=== PATIENT | male | born 1940 | race Caucasian/White ===

== ENCOUNTER 2018-12-30 14:34 | Outpatient (REF) | payer MEDICARE, SELFPAY ==
[2018-12-30 19:52] LABS: COMMENT (LAB VIEW ONLY) 37.74 mg/dL; Microalb ug/mg Crea 7.9 ug/mg Cr
== END 2018-12-30 14:54 ==
LOC: NCHCN 14:34
PROVIDERS: PCP Internal Medicine; Visit Provider Internal Medicine
DX: R73.09 Other abnormal glucose (principal)
CPT/HCPCS: 82043; 82570

== ENCOUNTER 2019-02-13 11:58 | Outpatient (REF) | payer MEDICARE, SELFPAY ==
[2019-02-13 20:04] LABS: Abs Immature Grans 0.01 k/cumm (0.0-0.09); Absolute Basophil Count 0.05 k/cumm (0.0-0.2); Absolute Eosinophil Count 0.45 k/cumm (0.0-0.7); Absolute Lymphocyte Count 1.86 k/cumm (1.2-3.4); Absolute Monocyte Count 0.77 k/cumm (0.11-0.7); Absolute Neutrophil Count 7.05 k/cumm (1.2-6.7); Basophils % 0.5; Eosinophils % 4.4; HCT 36.5 % (40.0-50.0); Immature Grans % 0.1; Lymphocytes % 18.3; Mean Corp. HGB Concentration 32.9 g/dL (32.0-36.0); Mean Corpuscular Hemoglobin 32.6 pg (27.0-33.0); Mean Corpuscular Volume 99.2 fL (80-95); Mean Platelet Volume 11.8 fL (8.0-11.0); Monocytes % 7.6; Neutrophils % 69.1; Platelet Count 181 x1000/uL (130-400); RBC 3.68 m/cumm (4.50-6.00); RBC Distribution Width 16.8 % (11.8-14.1); White Blood Cell Count 10.19 k/cumm (4.4-10.8)
[2019-02-13 20:30] LABS: Anion Gap 6.9 mmol/L (3-11); BUN 27 mg/dL (7-18); CO2 30.1 mmol/L (21.0-32.0); CREATININE 1.26 mg/dL (0.70-1.30); Calcium 8.6 mg/dL (8.5-10.1); Chloride 104 mmol/L (98-107); Estimated GFR 55.49 (mL/min/1.73m2); Glucose 101 mg/dL (70-100); NT-proBNP 2159 pg/mL; Potassium 4.5 mmol/L (3.5-5.1); Sodium 141 mmol/L (136-145); Troponin I 0.03 ng/mL (0.00-0.06)
== END 2019-02-13 12:18 ==
LOC: NCHCN 11:58
PROVIDERS: PCP Internal Medicine; Visit Provider Internal Medicine
DX: I10 Essential (primary) hypertension (principal); I50.9 Heart failure, unspecified; J44.9 Chronic obstructive pulmonary disease, unspecified
CPT/HCPCS: 80048; 83880; 84484; 85025

== ENCOUNTER 2019-08-09 14:14 | Outpatient (REF) | payer MEDICARE, SELFPAY ==
[2019-08-09 20:21] LABS: Anion Gap 7.7 mmol/L (3-11); BUN 26 mg/dL (7-18); CO2 33.3 mmol/L (21.0-32.0); CREATININE 1.53 mg/dL (0.70-1.30); Calcium 8.6 mg/dL (8.5-10.1); Chloride 103 mmol/L (98-107); Estimated GFR 44.24 (mL/min/1.73m2); Glucose 97 mg/dL (70-100); Sodium 144 mmol/L (136-145)
== END 2019-08-09 14:34 ==
LOC: NCHCN 14:14
PROVIDERS: PCP Internal Medicine; Visit Provider Internal Medicine
DX: I10 Essential (primary) hypertension (principal); I48.91 Unspecified atrial fibrillation; J44.9 Chronic obstructive pulmonary disease, unspecified; R59.0 Localized enlarged lymph nodes
CPT/HCPCS: 80048

== ENCOUNTER 2020-10-10 13:48 | Outpatient (REF) | payer MEDICARE, SELFPAY ==
[2020-10-10 15:09] LABS: HCT 33.4 % (40.0-50.0); HGB 10.1 g/dL (13.5-17.5); MCH 31.6 pg (27.0-33.0); MCHC 30.2 % (32.0-36.0); MCV 104.4 fL (80-95); MPV 10.5 fL (8.0-11.0); Platelet Count 343 10^3/uL (130-400); RDW 17.1 % (11.8-14.1); RDW-SD 65.1 fL; WBC 11.86 10^3/uL (4.4-10.8)
[2020-10-10 15:15] LABS: Anion Gap 3.5 mmol/L (3-11); BUN 27 mg/dL (7-18); CO2 36.5 mmol/L (21.0-32.0); CREATININE 1.64 mg/dL (0.70-1.30); Calcium 8.5 mg/dL (8.5-10.1); Chloride 102 mmol/L (98-107); Estimated GFR 40.73 (mL/min/1.73m2); Glucose 139 mg/dL (74-106); Potassium 3.6 mmol/L (3.5-5.1); Sodium 142 mmol/L (136-145)
== END 2020-10-10 14:08 ==
LOC: NCHCN 13:48
PROVIDERS: PCP Internal Medicine; Visit Provider Internal Medicine
DX: I10 Essential (primary) hypertension (principal); I13.10 Hypertensive heart and chronic kidney disease without heart failure, with stage 1 through stage 4 chronic kidney disease, or unspecified chronic kidney disease; I42.9 Cardiomyopathy, unspecified
CPT/HCPCS: 80048; 85027

== ENCOUNTER 2020-12-06 17:57 | Outpatient (REF) | payer MEDICARE, SELFPAY ==
[2020-12-06 18:55] LABS: COMMENT (LAB VIEW ONLY) 31.51 mg/dL; Microalb ug/mg Crea 4.4 ug/mg Cr
== END 2020-12-06 17:58 | disposition home or self-care (01) ==
LOC: NCHCN 17:57
PROVIDERS: PCP Internal Medicine; Visit Provider Internal Medicine
DX: E11.9 Type 2 diabetes mellitus without complications (principal); K92.2 Gastrointestinal hemorrhage, unspecified; I13.10 Hypertensive heart and chronic kidney disease without heart failure, with stage 1 through stage 4 chronic kidney disease, or unspecified chronic kidney disease; I42.9 Cardiomyopathy, unspecified
CPT/HCPCS: 82043; 82570

== ENCOUNTER 2021-08-25 19:47 | Outpatient (REF) | payer MEDICARE, SELFPAY ==
[2021-08-25 20:46] LABS: ALT 33 U/L (16-63); AST 40 U/L (15-37); Albumin 3.4 g/dL (3.4-5.0); Alkaline Phosphatase 87 U/L (46-116); Anion Gap 2.9 mmol/L (3-11); BUN 26 mg/dL (7-18); Bilirubin, Total 0.7 mg/dL (0.2-1.0); CO2 37.1 mmol/L (21.0-32.0); CREATININE 1.5 mg/dL (0.70-1.30); Calcium 8.9 mg/dL (8.5-10.1); Chloride 100 mmol/L (98-107); Estimated GFR 45.03 (mL/min/1.73m2); Glucose 113 mg/dL (74-106); Potassium 5.2 mmol/L (3.5-5.1); Sodium 140 mmol/L (136-145); Total Protein 7.5 g/dL (6.4-8.2)
[2021-08-25 20:56] LABS: HCT 45.2 % (40.0-50.0); HGB 14.8 g/dL (13.5-17.5); MCH 33.3 pg (27.0-33.0); MCHC 32.7 % (32.0-36.0); MCV 101.6 fL (80-95); MPV 13.6 fL (8.0-11.0); Platelet Count 149 10^3/uL (130-400); RBC 4.45 10^6/uL (4.36-5.78); RDW 14.5 % (11.8-14.1); WBC 7.89 10^3/uL (4.4-10.8)
== END 2021-08-25 19:48 | disposition home or self-care (01) ==
LOC: NCHCN 19:47
PROVIDERS: PCP Internal Medicine; Visit Provider Internal Medicine
DX: I10 Essential (primary) hypertension (principal); I48.91 Unspecified atrial fibrillation; I42.9 Cardiomyopathy, unspecified
CPT/HCPCS: 80053; 85027

== ENCOUNTER 2022-06-19 19:48 | Outpatient (REF) | payer MEDICARE, SELFPAY ==
--- OUTSIDE RECORDS SUMMARY | 2022-06-19 19:51 | XMS_ITS | Continuity of Care Document ---
:1940 Author Organization [facility] Care Team Providers Name Role Phone [facility] Unavailable Unavailable Problems Combined list of problems from Department of Defense and Veterans Affairs facilities. It does not include entries that were removed or entered in error. Problem Status Onset Problem Type Date of Comments Source Date Resolution Cardiac disorder Active Condition WHI TE [place] T [facility] Chronic atrial Active Condition WH[place] fibrillation (SNOMED [place] 230946148) [facility] Chronic obstructive Active Condition WHITE lung disease (SN[place]ED [place] 97685657) [facility] Diabetes mellitus Active Condition WH ITE (SNOMED CT 82282410) RIVER T [facility] Dizziness * Active Condition WHITE (ICD-9-CM 780.4) [place] [facility] Elevated Liver Active Condition WHITE Function Tests RIVER T (ICD-9-CM 794.8) VA IVETTE Health Maintenance Active Condition W ALYSSA (ICD-9-CM V65.9) [place] T [facility] HTN - Hypertension Active Condition W ALYSSA (SNOMED CT 28838279) R[facility] T [facility] Hyperlipidemia Active Condition WHITE (SNOMED CT 51021722) R[facility] T [facility] Neuropathy (nerve Active Condition May 12, [place] [facility] damage) 2018 CLINIC Entered By: Juvencio MENDOZA Comment: right lower leg from knee to ankle 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, WH ITE disease 2016 RIVER T Entered By: [facility] Juvencoi MENDOZA Comment: RIGHT LEG ONLY RESULT OF TKA Restless legs Active Condition [place] [place] [facility] 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 [place] [facility] Diagnosis: ICD-10-CM active Diagnosis [facility] Z23 Encounter for CL INIC immunizationwith Provider Comments: Encounter for Immunization Diagnosis: ICD-10-CM active Diagnosis [facility] J44.9 Chronic CLINIC obstructive pulmonary disease, unspecifiedwith Provider Comments: Chronic obstructive lung disease ([facility] [id number]) Diagnosis: ICD-10-CM active Diagnosis WHITE Z71.[address] specified [facility] counselingwith Provider Comments: Other specified counseling Diagnosis: ICD-10-CM active Diagnosis [facility] I48.20 Chronic CLINI C atrial fibrillation, unspecifiedwith Provider Comments: Chronic atrial fibrillation, unspecified Medications Combined list of outpatient medications from Department of Defense and Veterans Affairs facilities. Medications provided include 1) outpatient medications from the last 15 months, and 2) patient-reported medications. Medication Details Route Status Patient Prescription Prescription Last Ordering Order Source Instructions Expires Number Dispense Provider Date Date ALBUTEROL INHALE ACTIVE BAEZARADAMES 05/24/ ST. (NEB) IN AEL D 2013 [place] SOLN,INHL NEBULIZE RY [facility] R BY MOUTH ALBUTEROL INHALE 2 04/02/2022 [id number] HIPES, CAMILA 04/01/ [place] 90MCG/ACTUA PUFFS BY 1 N D 2020 R[place] T (CFC-F) MOUTH [place] INHL,ORAL,8 FOUR [facility] .5GM DOSE TIMES COUNTER DAILY NEEDED FOR BREATHIN G ASPIRIN CHEW ONE ORAL ACTIVE ROBERT ST. 81MG TABLET ,SAMARA 2008 [place] TAB,CHEWABL BY MOUTH RY CB OC E EVERY DAY ATORVASTATI TAKE ONE ORAL ACTIVE TATUM SORENSON 04/05/ [place] N [place] 40MG TABLET FABRICE2016 [facility] TAB BY MOUTH CLINIC EVERY DAY AZITHROMYCI TAKE ONE ORAL ACTIVE TATUM SORENSON 10/02/ WHITE N 250MG TAB TABLET FABRICE 2015 [place] BY MOUTH [place] EVERY [facility] DAY DILTIAZEM TAKE 1 ORAL ACTIVE REJI 06/02/ WHI TE (EQV-TIAZAC CAPSULE ,LADARIUS 2016 COLTEN ER AB4) 180MG BY MOUTH R [place]CT 24HR CAP EVERY [facility] DAY FUROSEMIDE TAKE ONE ORAL ACTIVE RADAMES BAEZA ST. 20MG TAB TABLET AEL D 2013 [place] BY MOUTH RY CBOC NEEDED METOPROLOL TAKE ONE ORAL ACTIVE TATUM SORENSON 04/05/ YOLIS TARTRATE TABLET FABRICE2016 [facility] 50MG TAB BY MOUTH CLINIC TWICE A DAY NITROGLYCER TAKE ONE SUBLIN ACTIVE RADAMES BAEZA 05/24 ST. IN 0.4MG TABLET GUAL AEL D 2013 [place] TAB,SUBLING UNDER RY CBOC UAL THE TONGUE EVERY 5 MINUTES OLODATEROL INHALE 2 05/10/2021 [id number] HIPE S,CAMILA 05/09/ YOLIS 2.5MCG/TIOT PUFFS BY 1 N D 2019 [place] ROPIUM MOUTH CLINIC 2.5MCG/ACTU EVERY AT DAY FOR INHL,ORAL,6 BREATHIN 0D,4GM G OXYCODONE TAKE ORAL ACTIVE REJI 05/12/ NEWP ORT TAB 10MG BY ,LADARIUS 2017 [facility] MOUTH R CLINIC THREE TIMES A DAY WARFARIN NA TAKE ONE ORAL ACTIVE REJI 10/23/ YOLIS 5MG TAB TABLET ,LADARIUS 2017 [place] BY MOUTH R CLINIC ONCE DAILY Allergies, Adverse Reactions, Alerts Combined list of allergies from Department of Defense and Veterans Affairs facilities. It does not include entries that were removed or entered in error. Substance Category Reaction Severity Reaction Status Date Comments S ource type Reported SPIRONOLACTON Propensity Eruption Propensity active WHITE E to adverse to adverse 9 [place] DEMETRICE reactions reactions [place] to drug to drug [facility] (finding) (finding) Immunizations Combined list of available immunizations from the Department of Defense and Veterans Affairs facilities. Immunization Series Date Administered Site Reaction Lot CVX Drug St atus Comments Source Given By Number Code Fire Behavior Analyst ZOSTER 2 complet NEWP ORT RECOMBINANT 2021 ed [facility] ZOSTER 1 complet NEWP ORT RECOMBINANT 2021 ed [facility] COVID-19 2 complet WH ITE (MODERNA), 2020 ed COLTEN ER MRNA, LNP-S, J CT PF, 100 [facility] MCG/0.5 ML DOSE COVID-19 1 complet WH ITE (MODERNA), 2020 ed COLTEN ER MRNA, LNP-S, J CT PF, 100 [facility] MCG/0.5 ML DOSE INFLUENZA, complet WHITE UNSPECIFIED 2019 ed [place] DEMETRICE FORMULATION [facility] complet Dr. NEVAREZ , 2018 ed [place] DEMETRICE INJECTABLE office NASIMA T (outside [facility]) INFLUENZA, complet As per ROQUE , 2017 ed State of [place]ER INJECTABLE [place] Immunizat [facility] ion Registry INFLUENZA, complet ROQUE , 2016 ed RIVE R INJECTABLE [place] [facility], complet [place] UNSPECIFIED 2016 ed [place] DEMET[place]ICE FORMULATION NASIMA T [facility] PNEUMOCOCCAL complet WHITE CONJUGATE PCV 2016 ed [place] 13 [place] [facility] INFLUENZA, complet WHITE UNSPECIFIED 2014 ed [place] DEMETRICE FORMULATION NASIMA T [facility] PNEUMOCOCCAL complet WHITE POLYSACCHARID 2014 ed [place] PPV23 [place] [facility] INFLUENZA, complet [place] WHITE UNSPECIFIED 2013 ed [place] FORMULATION Health [facility] TDAP complet As per MILEY Dykes 2012 ed State of [facility] Immun. [place] Registry [facility] C INFLUENZA, complet WHITE UNSPECIFIED 2012 ed [place] DEMETRICE FORMULATION NASIMA T [facility] ZOSTER LIVE complet as rich r ROQUE 2012 ed State of [facility] [place] Immunizat [facility] OC ion Registry ZOSTER LIVE complet Site: [place] 2012 ed Left [place] [facility] INFLUENZA, complet WHITE UNSPECIFIED 2011 ed [place] DEMETRICE FORMULATION NASIMA T [facility] INFLUENZA, complet Site: ST. UNSPECIFIED 2010 ed Right MISSY [facility] FORMULATION Deltoid RY CB[facility] TDAP complet ST. 2010 ed [place] [facility] INFLUENZA, complet Site: ST. UNSPECIFIED 2009 ed Left MISSY [place] FORMULATION Deltoid RY CBOC INFLUENZA, complet WHITE UNSPECIFIED 2008 ed [place] DEMETRICE FORMULATION NASIMA T [facility] PNEUMOCOCCAL, complet ST. UNSPECIFIED 2008 ed MISSY [place] FORMULATION RY CB[facility] TD(ADULT) complet S T. UNSPECIFIED 2008 ed MISSY [place] FORMULATION RY CB[facility] INFLUENZA, complet WHITE UNSPECIFIED 2008 ed [place] DEMETRICE FORMULATION NASIMA T [facility] INFLUENZA, complet WHITE UNSPECIFIED 2007 ed [place] DEMETRICE FORMULATION NASIMA T [facility] Results Combined list of recent chemistry, hematology and other laboratory results from Department of Defense and Veterans Affairs, ranging from 15 months to all on record, depending upon the facility. Order Name Results Value Reference Date Interpretation Specimen Com ments Source Range FERRITIN FERRITIN 155.0 20 - 300 11/05 Specimen Type : SERUM [place] [ Comment: Te sts performed on [employer] (405) SN:[id number] VA E] IN SERUM Ordering Pr ovider: EDYTA GONSALVES [facility]INIC OR PLASMA Report Releas ed Date/Time: Nov 05, 2021 07:31 AM BY Reporting Lab: [place] [facility] IMMUNOASSAY [address] [facility] [address] Performing Lab: [place] [facility] [address] [facility] [place] [address] IRON+TIBC( IRON 122 40 - 160 11/05 Specimen Typ e: PLASMA YOLIS P) [MASS/VOLUM /2021 Comment: Te sts performed on youwho (405) SN:[id number] VA E] IN SERUM Ordering Pr ovider: EDYTA GONSALVES [facility] OR PLASMA Report Releas ed Date/Time: Nov 05, 2021 07:31 AM Reporting Lab: [place] [facility] [address] [facility] [address] Performing Lab: [place] [facility] [address] [facility] [address] IRON+TIBC( IRON 293 204 - 475 11/05 Specimen Ty pe: PLASMA YOLIS P) BINDING /2021 Comment: Tests performed on youwho (405) SN:[id number] VA CAPACITY Ordering Provi justus: EDYTA GONSALVES [facility] [MASS/VOLUM Report Rel eased Date/Time: Nov 05, 2021 07:31 AM E] IN SERUM Reporting L ab: [place] [facility] OR PLASMA [address] [place] [facility] [place] [address] Performing Lab: [place] [facility] [address] [facility] [place] [address] IRON+TIBC( IRON 42 15 11/05 Specimen Type : PLASMA YOLIS P) SATURATION /2021 Comment: Radha ts performed on youwho (405) SN:[id number] VA [MASS Ordering Provid er: EDYTA GONSALVES FRACTION] Report Releas ed Date/Time: Nov 05, 2021 07:31 AM IN SERUM OR Reporting L ab: [place] [facility] PLASMA [address] [facility] [place] [address] Performing Lab: [place] [facility] [address] [facility] [address] IRON+TIBC( IRON 171 126 - 382 11/05 Specimen Ty pe: PLASMA YOLIS P) BINDING /2021 Comment: Tests performed on youwho (405) SN:[id number] [place] CAPACITY.UN Ordering Pr ovider: HIPEDYTA MALDONADO SATURATED Report Releas ed Date/Time: Nov 05, 2021 07:31 AM [MASS/VOLUM Reporting L ab: [place] [facility] E] IN SERUM [address] [place] [address] OR PLASMA Performing La b: [place] [facility] [address] [facility] [place] [address] PHOSPHORUS PHOSPHATE 3.7 2.5 - 5.0 11/05 Specimen Type: PLASMA YOLIS [MASS/VOLUM /2021 Comment: Te sts performed on [employer] (405) SN:[id number] VA E] IN SERUM Ordering Pr ovider: [facility] OR PLASMA Report Releas ed Date/Time: Nov 05, 2021 07:31 AM Reporting Lab: [place] [facility] [address] [facility] [place] [address] Performing Lab: [place] [facility] [address] [facility] [place] [address] URIC ACID URATE 8.5 3.3 - 8.7 11/05 Specimen Typ e: PLASMA YOLIS [MASS/VOLUM /2021 Comment: Te sts performed on [employer] (405) SN:[id number] VA E] IN SERUM Ordering Pr ovider: [facility] OR PLASMA Report Releas ed Date/Time: Nov 05, 2021 07:31 AM Reporting Lab: [place] [facility] [address] [facility] [place] [address] Performing Lab: [place] [facility] [address] [facility] [place] [address] P4 UREA 22 7 - 25 11/05 Specimen Type: P LASMA YOLIS GLU,BUN,CR Comment: Te sts performed on [employer] (405) SN:[id number] SADI MACKENZ[place], [MASS/VOLUM Ordering Provider: EDYTA GONSALVES CA E] IN SERUM Report Rele ased Date/Time: Nov 05, 2021 07:31 AM OR PLASMA Reporting Lab : [place] [facility] [address] [facility] [place] [address] Performing Lab: [place] [facility] [address] [facility] [place] [address] P4 SODIUM 144 135 - 145 11/05 Specimen Type: PLASMA YOLIS GLU,BUN,CR [MOLES/VOLU /2021 Comment: Tests performed on [employer] (405) SN:[id number] SADI [place], [place]] IN Ordering Pro vider: [facility] SERUM OR Report Release d Date/Time: Nov 05, 2021 07:31 AM PLASMA Reporting Lab: [facility] [address] [facility] [address] [facility] Lab[facility] [address] [facility] [address] P4 POTASSIUM 4.1 3.5 - 5.0 11/05 Specimen Typ e: PLASMA YOLIS GLU,BUN,CR [MOLES/VOLU /2021 Comment: Tests performed on [employer] (405) SN:[id number] LEENA BELLO,SADI, [place]] IN Ordering Pro vider: [facility] [place] SERUM OR Report Release d Date/Time: Nov 05, 2021 07:31 AM PLASMA Reporting [facility] [address] [facility] [address] Performing Lab: [facility] [address] [facility] [address] P4 CHLORIDE 99 100 - 110 11/05 L Specimen Type : PLASMA YOLIS GLU,BUN,CR [MOLES/VOLU /2021 Comment: Tests performed on youwho (405) SN:[id number] LEENA BELLO,SADI, [place]] IN Ordering Pro vider: [facility] [place] SERUM OR Report Release d Date/Time: Nov 05, 2021 07:31 AM PLASMA Reporting Lab: [facility] [address] [facility] [address] Performing Lab: [facility] [address] [facility] [address] P4 CARBON 31 20 - 30 11/05 H Specimen Type: P LASMA YOLIS GLU,BUN,CR DIOXIDE, Comment: Te sts performed on [employer] (405) SN:[id number] LEENA BELLO,SADI, [facility] Ordering Pro vider: [facility] [place] [MOLES/VOLU Report Rele ased Date/Time: Nov 05, 2021 07:31 AM ME] IN Reporting Lab: [facility] SER[facility] OR [address] [facility] [address] PLASMA Performing Lab: [facility] [address] [facility] [address] P4 ANION GAP 14 4 - 16 11/05 Specimen Type: PLASMA YOLIS GLU,BUN,CR IN SERUM OR /2021 Comment: Tests performed on [employer] (405) SN:[id number] VA EAT,LYTES, PLASMA Ordering Pro vider: EDYTA GONSALVES [facility] CA Report Released Date/Time: Nov 05, 2021 07:31 AM Reporting Lab: [facility] [address] [facility] [address] Performing Lab: [facility] [address] [facility] [address] P4 GLUCOSE 129 65 - 100 11/05 H Specimen Type: PLASMA YOLIS GLU,BUN,CR [MASS/VOLUM /2021 Comment: Tests performed on [employer] (405) SN:[id number] VA EAT,LYTES, E] IN SERUM Ordering Provider: [facility] CA OR PLASMA Report Rele ed Date/Time: Nov 05, 2021 07:31 AM Reporting Lab: [facility] [address] [facility] [address] Performing Lab: [facility] [address] [facility] [address] P4 CREATININE 1.57 0.5 - 1.5 11/05 H Specimen Ty pe: PLASMA YOLIS GLU,BUN,CR [MASS/VOLUM /2021 Comment: Tests performed on [employer] (405) SN:[id number] LEENA EAT,LYTES, E] IN SERUM Ordering Provider: [facility] CA OR PLASMA Report Releas ed Date/Time: Nov 05, 2021 07:31 AM Reporting Lab: [facility] [address] [facility] [address] Performing Lab: [facility] [address] [facility] [address] P4 CALCIUM 9.3 8.5 - 10.5 11/05 Specimen Type : PLASMA YOLIS GLU,BUN,CR [MASS/VOLUM /2021 Comment: Tests performed on [employer] (405) SN:[id number] VA EAT,LYTES, E] IN SERUM Ordering Provider: [facility] CA OR PLASMA Report Releas ed Date/Time: Nov 05, 2021 07:31 AM Reporting Lab: [place] [facility] [address] [facility] [place] [address] Performing Lab: [place] [facility] [address] [facility] [place] [address] P4 GLOMERULAR 43 60 11/05 L Specimen Type : PLASMA YOLIS GLU,BUN,CR FILTRATION /2021 Comment: Tests performed on [employer] (405) SN:[id number] VA EAT,LYTES, RATE/1.73 Ordering P rovider: EDYTA GONSALVES [facility] CA SQ Report Released Date/Time: Nov 05, 2021 07:31 AM M.PREDICTED Reporting L ab: [place] [facility] [VOLUME [address] [facility] [address] RATE/AREA] Performing L ab: [place] [facility] IN SERUM OR [address] [facility] [address] PLASMA BY CREATININE- BASED FORMULA (MDRD) ALBUMIN ALBUMIN 3.9 3.2 - 5.0 11/05 Specimen Type: PLASMA YOLIS [MASS/VOLUM /2021 Comment: Te sts performed on [employer] (405) SN:[id number] VA E] IN SERUM Ordering Pr ovider: EDYTA GONSALVES [facility] OR PLASMA Report Rele ed Date/Time: Nov 05, 2021 07:31 AM Reporting Lab: [place] [facility] [address] [facility] [place] [address] Performing Lab: [place] [facility] [address] [facility] [address] VIT D CALCIFEROL 39.3 20 - 50 11/05 Specimen Type : SERUM YOLIS 25-OH(WRJ) (VIT D2) /2021 Comment: Te sts performed on [employer] (405) SN:[id number] VA [MASS/VOLUM Ordering Pr ovider: EDYTA GONSALVES [facility] E] IN SERUM Report Rele ased Date/Time: Nov 05, 2021 07:31 AM OR PLASMA Reporting Lab : [place] [facility] [address] [facility] [place] [address] Performing Lab: [place] [facility] [address] [facility] [address] PTH-INTACT PARATHYRIN. 167.3 8.7 - 77.1 11/05 H Specim en Type: SERUM YOLIS (WRJ) INTACT Comment: Tests performed on youwho (405) SN:[id number] VA [MASS/VOLUM Ordering Pr ovider: EDYTA GONSALVES E] IN SERUM Report Rele ased Date/Time: Nov 05, 2021 07:31 AM OR PLASMA Reporting Lab : [place] [facility] [address] [facility] [place] [address] Performing Lab: [place] [facility] [address] [facility] [place] [address] CBC LEUKOCYTES 9.7 4.5 - 11.0 11/05 Specimen T ype: BLOOD YOLIS PROFILE [#/VOLUME] /2021 No comment en tered. [place] IN BLOOD BY Ordering Pr ovider: EDYTA GONSALVES AUTOMATED Report Releas ed Date/Time: Nov 05, 2021 07:31 AM COUNT Reporting Lab: [place] [facility] [address] [facility] [place] [address] Performing Lab: [place] [facility] [address] [facility] [place] [address] CBC ERYTHROCYTE 4.18 4.23 - 11/05 L Specimen Typ e: BLOOD YOLIS PROFILE S 5.66 No comment enter ed. VA [#/VOLUME] Ordering Pro vider: EDYTA GONSALVES IN BLOOD BY Report Rele ased Date/Time: Nov 05, 2021 07:31 AM AUTOMATED Reporting Lab : [place] [facility] COUNT [address] [facility] [place] [address] Performing Lab: [place] [facility] [address] [facility] [place] [address] CBC HEMOGLOBIN 14.2 12.8 - 17 11/05 Specimen Ty pe: BLOOD YOLIS PROFILE [MASS/VOLUM /2021 No comment e ntered. VA E] IN BLOOD Ordering Pr ovider: EDYTA GONSALVES Report Released Date/Time: Nov 05, 2021 07:31 AM Reporting Lab: [place] [facility] [address] [facility] [place] [address] Performing Lab: [place] [facility] [address] [facility] [place] [address] CBC HEMATOCRIT 45.4 39.2 - 11/05 Specimen Type : BLOOD YOLIS PROFILE [VOLUME 50.4 No comment enter ed. VA FRACTION] Ordering Prov ider: EDYTA GONSALVES [facility] OF BLOOD BY Report Rele ased Date/Time: Nov 05, 2021 07:31 AM AUTOMATED Reporting Lab : [place] [facility] COUNT [address] [place] [facility] [place] [address] Performing Lab: [place] [facility] [address] [facility] [place] [address] CBC MCV 108.6 82 - 99 11/05 H Specimen Type: B LOOD YOLIS PROFILE [ENTITIC /2021 No comment ente red. VA VOLUME] BY Ordering Pro vider: EDYTA GONSALVES [facility] AUTOMATED Report Releas ed Date/Time: Nov 05, 2021 07:31 AM COUNT Reporting Lab: [place] [facility] [address] [place] [facility] [place] [address] Performing Lab: [place] [facility] [address] [facility] [place] [address] CBC MCH 34.0 26.2 - 11/05 H Specimen Type: B LOOD YOLIS PROFILE [ENTITIC 32.6 /2021 No comment ente red. VA MASS] BY Ordering Provi justus: EDYTA GONSALVES [facility] AUTOMATED Report Relea sed Date/Time: Nov 05, 2021 07:31 AM COUNT Reporting Lab: [place] [facility] [address] [place] [facility] [place] [address] Performing Lab: [place] [facility] [address] [place] [facility] [place] [address] CBC MCHC 31.3 30.8 - 11/05 Specimen Type: B LOOD YOLIS PROFILE [MASS/VOLUM 35.1 /2021 No comment e ntered. VA E] BY Ordering Provid er: EDYTA GONSALVES [facility] AUTOMATED Report Releas ed Date/Time: Nov 05, 2021 07:31 AM COUNT Reporting Lab: [place] [facility] [address] [place] [facility] [place] [address] Performing Lab: [place] [facility] [address] [facility] [place] [address] CBC PLATELETS 191 140 - 360 11/05 Specimen Typ e: BLOOD YOLIS PROFILE [#/VOLUME] /2021 No comment en tered. VA IN BLOOD BY Ordering Pr ovider: EDYTA GONSALVES [facility] AUTOMATED Report Releas ed Date/Time: Nov 05, 2021 07:31 AM COUNT Reporting Lab: [place] [facility] [address] [facility] [place] [address] Performing Lab: [place] [facility] [address] [facility] [address] CBC PLATELET 12.4 9.2 - 12.4 11/05 Specimen Typ e: BLOOD YOLIS PROFILE MEAN VOLUME /2021 No comment e ntered. VA [ENTITIC Ordering Provi justus: EDYTA GONSALVES [facility] VOLUME] IN Report Relea sed Date/Time: Nov 05, 2021 07:31 AM BLOOD BY Reporting Lab: [facility] [facility] AUTOMATED [address] [facility] [address] COUNT Performing Lab: [place] [facility] [address] [facility] [address] CBC ERYTHROCYTE 16.4 12.0 - 11/05 H Specimen Typ e: BLOOD YOLIS PROFILE DISTRIBUTIO 16.0 No comment e ntered. VA N WIDTH Ordering Provid er: EDYTA GONSALVES [RATIO] BY Report Relea sed Date/Time: Nov 05, 2021 07:31 AM AUTOMATED Reporting Lab : [facility] [facility] COUNT [address] [facility] [place] [address] Performing Lab: [place] [facility] [address] [facility] [place] [address] CBC LYMPHOCYTES 18.4 14.0 - 11/05 Specimen Typ e: BLOOD YOLIS PROFILE /100 42.3 No comment enter ed. VA LEUKOCYTES Ordering Pro vider: EDYTA GONSALVES [facility] IN BLOOD BY Report Rele ased Date/Time: Nov 05, 2021 07:31 AM AUTOMATED Reporting Lab : [place] [facility] COUNT [address] [facility] [place] [address] Performing Lab: [place] [facility] [address] [facility] [place] [address] CBC MONOCYTES/1 7.2 5.1 - 13.7 11/05 Specimen Type: BLOOD YOLIS PROFILE No comment enter ed. [place] LEUKOCYTES Ordering Pro vider: EDYTA GONSALVES [facility] IN BLOOD BY Report Rele ased Date/Time: Nov 05, 2021 07:31 AM AUTOMATED Reporting Lab : [place] [facility] COUNT [address] [facility] [place] [address] Performing Lab: [place] [facility] [address] [facility] [place] [address] CBC GRANULOCYTE 69.2 43.7 - 11/05 Specimen Typ e: BLOOD YOLIS PROFILE S/100 75.8 /2021 No comment enter ed. [place] LEUKOCYTES Ordering Pro vider: EDYTA GONSALVES [facility] IN BLOOD BY Report Rele ased Date/Time: Nov 05, 2021 07:31 AM AUTOMATED Reporting Lab : [place] [address] [facility] [place] [address] Performing Lab: [facility] [address] [facility] [place] [address] CBC EOSINOPHILS 4.0 0.4 - 6.8 11/05 Specimen T ype: BLOOD YOLIS PROFILE /100 /2021 No comment enter ed. [place] LEUKOCYTES Ordering Pro vider: EDYTA GONSALVES IN BLOOD BY Report Rele ased Date/Time: Nov 05, 2021 07:31 AM AUTOMATED Reporting Lab : [facility] [address] [facility] [place] [address] Performing Lab: [facility] [address] [facility] [place] [address] CBC BASOPHILS/1 0.6 0.1 - 2.0 11/05 Specimen T ype: BLOOD YOLIS PROFILE 00 No comment enter ed. [place] LEUKOCYTES Ordering Pro vider: EDYTA GONSALVES [facility] IN BLOOD BY Report Rele ased Date/Time: Nov 05, 2021 07:31 AM AUTOMATED Reporting Lab : [facility] [address] [facility] [place] [address] Performing Lab: [facility] [address] [facility] [place] [address] CBC IMMATURE 0.6 0.0 - 0.7 11/05 Specimen Type : BLOOD YOLIS PROFILE GRANULOCYTE No comment e ntered. [place] S/100 Ordering Provid er: EDYTA GONSAL[facility]ES [facility] LEUKOCYTES Report Relea sed Date/Time: Nov 05, 2021 07:31 AM IN BLOOD BY Reporting L ab: [facility] [address] [place] [facility] [place] [address] COUNT Performing Lab: [facility] [address] [facility] [place] [address] CBC NUCLEATED 0.0 0.0 - 0.0 11/05 Specimen Typ e: BLOOD YOLIS PROFILE ERYTHROCYTE No comment e ntered. [facility] S Ordering Provid er: [facility] [#/VOLUME] Report Relea sed Date/Time: Nov 05, 2021 07:31 AM IN BLOOD BY Reporting L ab: [facility] [address] [place] [facility] [place] [address] COUNT Performing Lab: [facility] [address] [facility] [place] [address] CBC IMMATURE 0.1 0 - 0.06 11/05 H Specimen Type: BLOOD YOLIS PROFILE No comment e ntered. VA S Ordering Provid er: [facility] [#/VOLUME] Report Relea sed Date/Time: Nov 05, 2021 07:31 AM IN BLOOD Reporting Lab: [facility] [address] [facility] [place] [address] Performing Lab: [facility] [address] [facility] [place] [address] CBC BASOPHILS 0.1 0.01 - 11/05 Specimen Type: BLOOD YOLIS PROFILE [#/VOLUME] 0.13 No comment en tered. VA IN BLOOD BY Ordering Pr ovider: [facility] AUTOMATED Report Releas ed Date/Time: Nov 05, 2021 07:31 AM COUNT Reporting Lab: [facility] [address] [facility] [place] [address] Performing Lab: [facility] [address] [facility] [place] [address] CBC EOSINOPHILS 0.4 0.03 - 11/05 Specimen Typ e: BLOOD YOLIS PROFILE [#/VOLUME] 0.44 No comment en tered. VA IN BLOOD BY Ordering Pr ovider: [facility] AUTOMATED Report Releas ed Date/Time: Nov 05, 2021 07:31 AM COUNT Reporting Lab: [facility] [address] [facility] [place] [address] Performing Lab: [facility] [address] [facility] [address] CBC LYMPHOCYTES 1.8 1.0 - 3.2 11/05 Specimen T ype: BLOOD YOLIS PROFILE [#/VOLUME] /2021 No comment en tered. VA IN BLOOD BY Ordering Pr ovider: EDYTA GONSALVES [facility] AUTOMATED Report Releas ed Date/Time: Nov 05, 2021 07:31 AM COUNT Reporting Lab: [facility] [address] [facility] [address] Performing Lab: [facility] [address] [facility] [address] CBC MONOCYTES 0.7 0.3 - 1.1 11/05 Specimen Typ e: BLOOD YOLIS PROFILE [#/VOLUME] /2021 No comment en tered. VA IN BLOOD BY Ordering Pr ovider: EDYTA GONSALVES [facility] AUTOMATED Report Releas ed Date/Time: Nov 05, 2021 07:31 AM COUNT Reporting Lab: [facility] [address] [facility] [address] Performing Lab: [facility] [address] [facility] [address] CBC NEUTROPHILS 6.7 2.2 - 7.6 11/05 Specimen T ype: BLOOD YOLIS PROFILE [#/VOLUME] /2021 No comment en tered. VA IN BLOOD BY Ordering Pr ovider: EDYTA GONSALVES [facility] AUTOMATED Report Releas ed Date/Time: Nov 05, 2021 07:31 AM COUNT Reporting Lab: [facility] [address] [facility] [address] Performing Lab: [facility] [address] [facility] [address] CBC NUCLEATED 0.00 0 - 0 11/05 Specimen Type: BLOOD YOLIS PROFILE No comment e ntered. VA S Ordering Provid er: EDYTA GONSALVES [facility] [#/VOLUME] Report Relea sed Date/Time: Nov 05, 2021 07:31 AM IN BLOOD BY Reporting L ab: [facility] [address] [facility] [address] COUNT Performing Lab: [facility] [address] [facility] [address] P4 UREA 25 7 - 25 01/15 Specimen Type: P LASMA YOLIS GLU,BUN,CR NITROGEN /2020 Comment: Te sts performed on [employer] (405) [place]ADI [place], [MASS/VOLUM Ordering Provider: EDYTA GONSALVES [facility] CATINA E] IN SERUM Report Rele ased Date/Time: Jan 15, 2021 07:03 AM OR PLASMA Reporting Lab : [facility] [address] [facility] [place] [address] Performing Lab: [facility] [address] [facility] [address] P4 SODIUM 143 135 - 145 01/15 Specimen Type: PLASMA YOLIS GLU,BUN,CR [MOLES/VOLU /2020 Comment: Tests performed on [employer] (405) [place], [place]] IN Ordering Pro vider: [facility] [place] SERUM OR Report Release d Date/Time: Jan 15, 2021 07:03 AM PLASMA Reporting Lab: [facility] [address] [facility] [address] Performing Lab: [facility] [address] [facility] [place] [address] P4 POTASSIUM 4.2 3.5 - 5.0 01/15 Specimen Typ e: PLASMA YOLIS GLU,BUN,CR [MOLES/VOLU /2020 Comment: Tests performed on [employer] (405) [place], [place]] IN Ordering Pro vider: [facility] [place] SERUM OR Report Release d Date/Time: Jan 15, 2021 07:03 AM PLASMA Reporting Lab: [facility] [address] [facility] [place] [address] Performing Lab: [facility] [address] [facility] [place] [address] P4 CHLORIDE 100 100 - 110 01/15 Specimen Type : PLASMA YOLIS GLU,BUN,CR [MOLES/VOLU /2020 Comment: Tests performed on [employer] (405) SADI [place]] IN Ordering Pro vider: [facility] SER[facility] OR Report Release d Date/Time: Jan 15, 2021 07:03 AM PLASMA Reporting Lab: [facility] [address] [facility] [place] [address] Performing Lab: [facility] [address] [facility] [place] [address] P4 CARBON 36 20 - 30 01/15 H Specimen Type: P LASMA YOLIS GLU,BUN,CR DIOXIDE, /2020 Comment: Te sts performed on youwho (405) VA EAT,LYTES, TOTAL Ordering Pro vider: [facility] [place] [MOLES/VOLU Report Rele ased Date/Time: Jan 15, 2021 07:03 AM ME] IN Reporting Lab: [facility] SERUM OR [address] [facility] [address] PLASMA Performing Lab: [facility] [address] [facility] [place] [address] P4 ANION GAP 7 4 - 16 01/15 Specimen Type: PLASMA YOLIS GLU,BUN,CR IN SERUM OR /2020 Comment: Tests performed on youwho (405) VA EAT,LYTES, PLASMA Ordering Pro vider: [facility] [place] Report Released Date/Time: Jan 15, 2021 07:03 AM Reporting [facility] [address] [facility] [place] [address] Performing Lab: [facility] [address] [facility] [place] [address] P4 GLUCOSE 108 65 - 100 01/15 H Specimen Type: PLASMA YOLIS GLU,BUN,CR [MASS/VOLUM /2020 Comment: Tests performed on youwho (405) VA EAT,LYTES, E] IN SERUM Ordering Provider: [facility] [place] OR PLASMA Report Releas ed Date/Time: Jan 15, 2021 07:03 AM Reporting Lab: [facility] [address] [facility] [place] [address] Performing Lab: [facility] [address] [facility] [place] [address] P4 CREATININE 1.56 0.5 - 1.5 01/15 H Specimen Ty pe: PLASMA YOLIS GLU,BUN,CR [MASS/VOLUM /2020 Comment: Tests performed on youwho (405) VA EAT,LYTES, E] IN SERUM Ordering Provider: [facility] [place] OR PLASMA Report Releas ed Date/Time: Jan 15, 2021 07:03 AM Reporting Lab: [facility] [address] [facility] [place] [address] Performing Lab: [place] [place] [facility] [address] [facility] [place] [address] P4 CALCIUM 9.1 8.5 - 10.5 01/15 Specimen Type : PLASMA YOLIS GLU,BUN,CR [MASS/VOLUM /2020 Comment: Tests performed on [employer] (405) VA EAT,LYTES, E] IN SERUM Ordering Provider: [facility] [place] OR PLASMA Report Releas ed Date/Time: Jan 15, 2021 07:03 AM Reporting Lab: [facility] [place] [facility] [address] [facility] [place] [address] Performing Lab: [facility] [place] [facility] [address] [facility] [address] P4 GLOMERULAR 43 60 01/15 L Specimen Type : PLASMA YOLIS GLU,BUN,CR Comment: Tests performed on [employer] (405) VA EAT,LYTES, RATE/1.73 Ordering P rovider: [facility] [place] SQ Report Released Date/Time: Jan 15, 2021 07:03 AM M.PREDICTED Reporting L ab: [facility] [VOLUME [address] [facility] [place] [address] RATE/AREA] Performing L ab: [facility] [place] [facility] IN SERUM OR [address] [facility] [address] PLASMA BY CREATININE- BASED FORMULA (MDRD) Vital Signs Combined list of inpatient and outpatient Vital Signs from Department of Defense and Veterans Affairs, ranging from 12 months to all on record, depending upon the facility. Vital Sign Value Date Comments Source SYSTOLIC BLOOD PRESSURE 122 11/06/2021 10:30:00 [facility] DIASTOLIC BLOOD PRESSURE 78 11/06/2021 10:30:00 [facility] PULSE OXIMETRY 97% 11/06/2021 10:30:00 [facility] WEIGHT 227 11/06/2021 10:30:00 [facility] BMI 36kg/m2 11/06/2021 10:30:00 [facility] PAIN 0 11/06/2021 10:30:00 [facility] HEIGHT 66.5 11/06/2021 10:30:00 [facility] TEMPERATURE 97.7 11/06/2021 10:30:00 [facility] PULSE 85 11/06/2021 10:30:00 [facility] RESPIRATION 18 11/06/2021 10:30:00 [facility] Encounters Combined list of: 1) Encounters from Department of Veterans Affairs facilities going back up to the last 18 months, not all [place] inpatient encounters are included; 2) Encounters from the Department of Defense facilities going back up to 280 months. Location Location Encounter Encounter Reason Attending ADM DC Stat us Disposition Source Details Type Number For Provider Date Date Visit Outpatient [id number] 01/01 [id number] [facility] [id number] 01/01 [id number] [facility] [id number] 01/08 [id number] [facility] 08537-3.40 01/08 [facility] Encounter [id number] [facility] OFFICE O/P [id number] Diagnos EDYTA GONSALVES 01/15 [place] EST [id number] is: D /2020 [facility] MINIMAL 82 ICD-10- CLINIC PROB CM I48.20 Chronic atrial fibrill ation, unspeci fied
with Provide r Comment s: Chronic atrial fibrill ation, unspeci fied Outpatient [id number] 01/15 [facility] [id number] [facility] 57673-2.40 01/16 [facility] Encounter [id number] /2020 [facility] Out[facility] [id number] 03/07 [id number] /[facility] [id number]..1 03/10 [id number] [id number] Diagnos FORD,CAR 03/31 W ALYSSA PHONE CALL [id number] is: OLYN M COLTEN ER 11-20 MIN ICD-10- [place] CM [facility] Z71.89 Other specifi ed drug and alcohol counsellor ing<br/ >with Provide r Comment s: Other specifi ed drug and alcohol counsellor ing Outpatient [id number] 04/01 [facility] En[facility] [id number] [facility] 12907-4.40 05/12 [facility] Encounter [id number] /2020 [facility] 01491-6.40 10/13 [facility] [id number] [facility] 29070-8.40 Diagnos EDYTA GONSALVES 11/06 [place] LOW [id number] is: D /2021 [facility] 20-29 MIN 39 ICD-10- CLINIC CM J44.9 Chronic obstruc tive pulmona ry disease , unspeci fied
with Provide r Comment s: Chronic obstruc tive lung disease (SCT [id number] 5) Outpatient [id number]..[id number] 12/18 [facility] En[facility] [id number] [facility] OFF[facility]P 24881-3.40 Diagnos JOSEP,S 01/02 [place] EST [id number] is: USAN V [facility] MINIMAL 53 ICD-10- CLINIC PROB CM Z23 Encount er for immuniz ation<b r/>with Provide r Comment s: Encount er for Immuniz ation Outpatient [id number] 01/20 [facility] Encounter [id number] /2021 [facility] Out[facility] 41130-4.40 01/20 [facility] Encounter [id number] /2021 [facility] Outpatient 27361-3.40 01/22 [facility] Encounter [id number] [facility] Outpatient [id number] 02/02 [facility] Encounter [id number] /[facility] [id number] 02/17 [facility] Encounter [id number] /2021 [facility] [id number] 02/19 [facility] Encounter [id number] /2021 [facility] 45802-2.40 03/19 [facility] En[facility] [id number] [facility] Social History Combined list of available smoking, tobacco, and other social history from [facility] facilities. Social History Type Response Date Comment Source Tobacco smoking VA-TO[facility]ACCO FORMER 11/06/2021 [facility] status NHIS USER History of tobacco VA-TOBACCO QUIT 15 11/06/2021 [facility] use YRS OR MORE History of tobacco VA-TOBACCO FORMER 11/07/2020 [facility] use USER History of tobacco VA-TOBACCO FORMER 12/15/2018 [facility] use USER History of tobacco QUIT TOBACCO USE > 7 10/05/2017 [facility] use YEARS AGO History of tobacco QUIT TOBACCO USE > 7 06/02/2016 W ALYSSA [facility] use YEARS AGO History of tobacco QUIT TOBACCO USE > 7 10/12/2007 S [facility] use YEARS AGO Plan of Care List of future care activities from Department of [facility] facilities. Additional future care activities may be listed in the Assessment and Plan section. Date/Time Care Activity Care Activity Detail Facility 11/10/2022 AMBULATORY - MEDICINE AMBULATORY - MEDICINE [facility] Advance Directives List of completed, amended, or rescinded Advance Directives on record at Department of Veterans Affairs facilities. An actual copy of the Directive is not included. Date Advance Directive Provider Source 07/29/2011 ADVANCE DIRECTIVE MILY MARIA [facility]
--- OUTSIDE RECORDS SUMMARY | 2022-06-19 19:52 | XMS_ITS | Encounter Summary ---
:1940 Author Organization [facility] Address [address] [place] [id number] Support Name Relationship Address Phone STEPHANIE KIM Unavailable [address] [place] [address] STEPHANIE KIM Unavailable [address] [place] [address] Insurance Providers: All historical and current Section Date Range: From patient's date of to the date document was created.This section includes the names of all active insurance providers for the patient. Insurance Type of Plan Start of End of Group Member Insurance Policy P atient's Provider Coverage Name Policy Policy Number ID Provider's Russo's Relationship Coverage Coverage Telephone Name to Policy Number Russo MEDICARE MEDICARE PART Apr 17, PART B [id number] FAIRCATIE OT PATIENT (WNR) (M) B 2014 23A 1 ER,JON D MEDICARE MEDICARE PART February 15, PART A [id number] [id number] OT PATIENT (WNR) (M) A 2005 23A 1 ER,JON D Selected Encounter This section includes the information on record at [place] for the Encounter. Date/Time Encounter Type Encounter Reason Provider Source Description Nov 06, 2021 OFFICE O/P EST PRIMARY ICD-10-CM J44.9 EDYTA GONSALVES 10:30 AM LOW 20-29 MIN CARE/MEDICINE Chronic obstructive pulmonary disease, unspecified with Provider Comments: Chronic obstructive lung disease ([facility] [id number]) IHE Encounter Template Text not used by [place] Assessments - Encounter Diagnoses This section includes the primary and secondary diagnoses documented for the Encounter. Date/Time Primary/Secondary Diagnosis Name Provider Source Diagnosis Nov 09, 2021 PRIMARY Chronic obstructive EDYTA GONSALVES [facility] 08:42 AM pulmonary disease, CLINIC unspecified Nov 09, 2021 SECONDARY Encounter for [facility] 08:42 AM immunization ER CLINIC Nov 09, 2021 SECONDARY Hypertensive heart HIPEDYTA MALDONADO [facility] 08:42 AM disease without CLINIC heart failure Nov 09, 2021 SECONDARY Other hyperlipidemia EDYTA GONSALVES [facility] 08:42 AM CLINIC Nov 09, 2021 SECONDARY Type 2 diabetes EDYTA GONSALVES [facility] 08:42 AM mellitus with CLINIC hyperglycemia Plan of Treatment: Future Appointments (+ 6 months) and Future Tests (+/- 45 days) The Plan of Treatment section includes future care activities for the patient from all [place] treatmentfacilities. This section includes future appointments and future orders which are active, pending orscheduled.Future Appointments This section includes appointments that were scheduled to occur 6 months from the date of the Encounter, up to a maximum of 20 appointments. The data comes from all [place] treatment facilities. Appointment Date/Time Appointment Type Appointment Facili ty Name Jan 02, 2022 10:00 AM AMBULATORY - MEDICINE [facility] C Jan 20, 2022 08:45 AM AMBULATORY - NONE [facility] Lab Results: +/- 30 days of the encounter This section includes the Chemistry and Hematology Lab Results on record with [place] for the patient. Radiology Reports and Pathology Reports are provided separately, in subsequent sections.Lab Results This section contains the Chemistry/Hematology Results that were resulted 30 days before or 30 daysafter the date of the Encounter. Date/Time Source Result Type Result - Unit Interpretation Reference Range Comment Nov 05, 2021 10:54 AM [facility] IRON+TIBC(P) Specime n Type: PLASMA Comment: Tests performed on import2 (405) [id number] Ordering Provid er: EDYTA GONSALVES Report Released Date/Time: Nov 05, 2021 07:31 AM Reporting Lab: [facility] [address] [facility] [place] [address] Performing Lab: [facility] [address] [facility] [place] [address] IRON 122 40-160 TIBC 293 204-475 IRON SATURATION(P) 42 >15 UIBC(P) 171 126-382 Nov 05, 2021 10:54 AM [facility] FERRITIN Specime n Type: SERUM Comment: Tests performed on import2 (405) SN:[id number] Ordering Provid er: EDYTA GONSALVES Report Released Date/Time: Nov 05, 2021 07:31 AM Reporting Lab: [facility] [address] [facility] [address] Performing Lab: [facility] [address] [facility] [address] FERRITIN 155.0 20-300 Nov 05, 2021 10:54 AM [facility] PHOSPHORUS Specime n Type: PLASMA Comment: Tests performed on Craft Vaurum (405) SN:[id number] Ordering Provid er: EDYTA GONSALVES Report Released Date/Time: Nov 05, 2021 07:31 AM Reporting Lab: [facility] [address] [facility] [address] Performing Lab: [facility] [address] [facility] [address] PHOSPHORUS 3.7 2.5-5.0 Nov 05, 2021 10:54 AM [facility] URIC ACID Specime n Type: PLASMA Comment: Tests performed on Craft Vaurum (405) [id number] Ordering Provid er: EDYTA GONSALVES Report Released Date/Time: Nov 05, 2021 07:31 AM Reporting Lab: [facility] [address] [facility] [address] Performing Lab: [facility] [address] [facility] [address] URIC ACID 8.5 3.3-8.7 Nov 05, 2021 10:54 [facility] P4 GLU,BUN,CREAT,LYTES,CA Specimen Type: PLASMA AM Comment: Tests performed on import2 (405) SN:[id number] Ordering Provid er: EDYTA GONSALVES Report Released Date/Time: Nov 05, 2021 07:31 AM Reporting Lab: [facility] [address] [facility] [address] Performing Lab: [facility] [address] [facility] [address] UREA NITROGEN 22 7-25 SODIUM 144 135-145 POTASSIUM 4.1 3.5-5.0 CHLORIDE 99 L 100-110 CARBON DIOXIDE 31 H 20-30 ANION GAP 14 4-16 GLUCOSE 129 H 65-100 CREATININE 1.57 H 0.5-1.5 CALCIUM 9.3 8.5-10.5 eGFR 43 L >60 Nov 05, 2021 10:54 AM [facility] ALBUMIN Specime n Type: PLASMA Comment: Tests performed on Craft Mount Loader (405) SN:[id number] Ordering Provid er: EDYTA GONSALVES Report Released Date/Time: Nov 05, 2021 07:31 AM Reporting Lab: [facility] [address] [facility] [place] [address] Performing Lab: [facility] [address] [facility] [place] [address] ALBUMIN 3.9 3.2-5.0 Nov 05, 2021 10:54 AM [facility] VIT D 25-OH(WRJ) Specim en Type: SERUM Comment: Tests performed on Craft Mount Loader (405) [id number] Ordering Provid er: EDYTA GONSALVES Report Released Date/Time: Nov 05, 2021 07:31 AM Reporting Lab: [facility] [facility] [facility] [address] [facility] [place] [address] Performing Lab: [facility] [address] [facility] [place] [address] VIT D 25-OH(WRJ) 39.3 20-50 Nov 05, 2021 10:54 AM [facility] PTH-INTACT(J) Specime n Type: SERUM Comment: Tests performed on Craft Mount Loader (405) SN:[id number] Ordering Provid er: EDYTA GONSALVES Report Released Date/Time: Nov 05, 2021 07:31 AM Reporting Lab: [facility] [address] [facility] [place] [address] Performing Lab: [facility] [place] [facility] [facility] [address] [facility] [place] [address] PTH-INTACT(WRJ) 167.3 H 8.7-77.1 Nov 05, 2021 10:54 AM [facility] CBC PROFILE Specime n Type: BLOOD No comment enter ed. Ordering Provid er: EDYTA GONSALVES Report Released Date/Time: Nov 05, 2021 07:31 AM Reporting Lab: [place] [facility] [facility] [address] [facility] [place] [address] Performing Lab: [facility] [place] [facility] [address] [facility] [place] [address] WBC 9.7 4.5-11.0 RBC 4.18 L 4.23-5.66 HGB 14.2 12.8-17 HEMATOCRIT 45.4 39.2-50.4 MCV 108.6 H 82-99 MCH 34.0 H 26.2-32.6 MCHC 31.3 30.8-35.1 PLT 191 140-360 MPV 12.4 9.2-12.4 RDW 16.4 H 12.0-16.0 LYMPH % 18.4 14.0-42.3 MONO % 7.2 5.1-13.7 NEUT % 69.2 43.7-75.8 EOS % 4.0 0.4-6.8 BASO % 0.6 0.1-2.0 IG % 0.6 0.0-0.7 NUCLEATED RED CELLS 0.0 0.0-0.0 ABSOLUTE IG 0.1 H 0-0.06 ABSOLUTE BASOPHILS 0.1 0.01-0.13 ABSOLUTE EOS. 0.4 0.03-0.44 ABSOLUTE LYMPHOCYTES 1.8 1.0-3.2 ABSOLUTE MONOCYTES 0.7 0.3-1.1 ABSOLUTE GRANULOCYTES 6.7 2.2-7.6 ABSOLUTE NRBC 0.00 0-0 Vital Signs: All taken on the encounter date This section contains inpatient and outpatient Vital Signs collected on the date of the Encounter. Date/Time Temperature Pulse Blood Respiratory SP02 Pain Height Weight Lino dy Source Pressure Rate Mass Index Nov 06, 97.7 F 85 122/78 18 /min 97 % 0 66.5 in 227 lb 36 [place] RT 2021 10:30 /min mm[Hg] [facility] Immunizations: All administered on the encounter date This section contains immunizations associated to the Encounter. Immunization Series Date Issued Reaction Comments ZOSTER RECOMBINANT 1 Nov 06, 2021 Social History: Smoking Status (Most current) and Tobacco Use (All prior to encounter date) This section includes the most current, and the historical, smoking and tobacco-related health factors from the [place] facility where the Encounter took place.Current Smoking Status This section includes the most current smoking, or tobacco-related health factor, from the [place] facility where the Encounter took place. Date/Time Current Smoking Status Comment Facility Nov 06, 2021 10:30 AM DE-TOBACCO FORMER USER [facility] Tobacco Use History This section includes a history of the smoking, or tobacco- related health factors, that were collected on or before the date of the Encounter. The data comes from the [place] facility where the Encounter took place. Date/Time Smoking Status/Tobacco Use Comment Facil [facility] Nov 06, 2021 10:30 AM VA-TOBACCO QUIT 15 YRS OR MORE [facility] Nov 07, 2020 02:00 PM VA-TOBACCO FORMER USER [facility] Nov 07, 2020 02:00 PM VA-TOBACCO QUIT 15 YRS OR MORE [facility] Oct 05, 2017 08:31 AM QUIT TOBACCO USE > 7 YEARS AGO [facility] Advance Directives: All historical and current Section Date Range: From patient's date of to the date document was created. This section includes ALL of a patient's completed or amended [place] Advance and Rescinded Directives. The entries below indicate that a directive exists for the patient, but an actual copy is not included with this document. The data comes from all [place] facilities. Date Advance Directives Provider Source Jul 29, 2011 ADVANCE DIRECTIVE MILY MARIA [facility] Encounter Notes: All associated encounter notes This section contains the clinical notes associated to the Encounter. Date/Time Encounter Note(s) Provider Source Nov 06, 2021 05:12 PM PRIMARY CARE NOTE: DANTE OLIVEIRA [facility] LOCAL TITLE: Injection Note STANDARD TITLE: PRIMARY CARE NOTE DATE OF NOTE: NOV 06, 2021@17:12 ENTRY DATE: NOV 06, 2021@17:12:25 AUTHOR: DANTE OLIVEIRA EXP COSIGNER: URGENCY: STATUS: COMPLETED Zoster Vaccine (Shingrix): The patient received recombinant zoster vaccine (RZV) 0.5 ml IM in Left deltoid. Chief Investment Officer: [employer] Zemaxine Lot# [id number] and Expiration Date: 01/25/2023 Adjuvant Lot# [id number] and Expiration Date: 2022 Administered by protocol/policy. SIte care give n pre/post injection. Complications: None. Well tolerated. The VIS for the recombinant zoster vaccine (RZV ) dated Jul was given to the patient. RTC entered for second dose of shingrix. /santiago/ DANTE OLIVEIRA LPN Signed: 11/06/2021 17:15 Nov 06, 2021 11:06 AM PRIMARY CARE NOTE: EDYTA GONSALVES [facility] LOCAL TITLE: Primary Care Clinic Note STANDARD TITLE: PRIMARY CARE NOTE DATE OF NOTE: NOV 06, 2021@11:06 ENTRY DATE: NOV 06, 2021@11:06:31 AUTHOR: EDYTA GONSALVES COSIGNER: URGENCY: STATUS: COMPLETED Primary Care Clinic Note Has ADDENDA [place] is identified by fir st name, last name and last 4 digits of his SS# and routinely followed by the [place] The patient has the following concerns: 1.Sees [facility] only top stay active in VA system..has his PCP--Erin and emergency care attendant--ivette 2.feels good..like his inogen O2 system HAD HIS shingles IMMUNIXZATION TODAY Review of Systems: GEN: Denies fever, chills, excessive fatigue ENDO: Denies significant weight changes EENT: Denies ear pain, sore throat; denies visio n, hearing changes CV: Denies chest pain PULM: Denies SOB, difficulty breathing, cough--states breathing has been better. O2 2lpm NC GI: Denies n/v/d, constipation, blood in stool : Denies urinary frequency, urgency, nocturia MSK: Denies joint pain, myalgias NEURO: Denies headaches, numbness tingling weakn ess, change in gait/balance EXT: Denies edema, pain SKIN: Denies new or changed lesions listed allergies;SPIRONOLACTONE Active problems - Computerized Problem List is t he source for the followin. Neuropathy (nerve damage) 2. Cardiac disorder 3. Restless legs 4. Peripheral nerve disease 5. Chronic atrial fibrillation ([place] [address] 9004) 6. Diabetes mellitus (SNOMED CT 18520185) 7. Elevated Liver Function Tests 8. Dizziness * 9. Chronic obstructive lung disease (SNOMED CT 15673334) 10. Health Maintenance 11. HTN - Hypertension (SNOMED CT 67152086) 12. Hyperlipidemia (SNOMED CT 56778623) Active Outpatient Medications (excluding Supplie s): Active Outpatient Medications Status 1) ALBUTEROL 90MCG (CFC-F) 200D ORAL INHL INHALE 2 PUFFS ACTIVE BY MOUTH FOUR TIMES DAILY NEEDED FOR BREATHI NG Active Non-VA Medications Status 1) Non-VA ALBUTEROL (NEB) SOLN,INHL MOUTH ACTIVE 2) Non-VA ASPIRIN 81MG CHEW TAB 81MG MOUTH EVERY DAY ACTIVE 3) Non-VA ATORVASTATIN CALCIUM 40MG TAB 40MG AISHA TH EVERY ACTIVE DAY 4) Non-VA AZITHROMYCIN 250MG TAB 250MG MOUTH MORTEZA RY DAY ACTIVE 5) Non-VA DILTIAZEM (EQV-TIAZAC) 180MG 24HR CAP 180MG ACTIVE MOUTH EVERY DAY 6) Non-VA FUROSEMIDE 20MG TAB 20MG MOUTH NEED ED ACTIVE 7) Non-VA METOPROLOL TARTRATE 50MG TAB 50MG MOUT H TWICE ACTIVE A DAY 8) Non-VA NITROGLYCERIN 0.4MG SL TAB 0.4MG UNDER THE ACTIVE TONGUE EVERY 5 MINUTES 9) Non-VA OXYCODONE TAB 10MG BY MOUTH THREE TIME S A DAY ACTIVE 10) Non-VA ZZZWARFARIN (COUMADIN) NA 5MG TAB 5MG BY MOUTH ACTIVE ONCE DAILY 11 Total Medications Physical Exam: B/P PULSE WEIGHT BMI SpO2 PAIN 112/64 90 226 34.4 99 0 GEN: Well-appearing, no apparent distress. ENT: hearing intact. NECK: supple. CV: RRR S1 S2 nl, no murmurs CHEST: CTA bilat with diminished bases, no crack les or wheezes ABD: BS nl, soft, nontender and rounded EXT: no edema MSK: Coordinated gait NEURO: Alert and oriented SKIN: pink warm dry, no rashes PSYCH: Appropriate affect and demeanor, normal s peech pattern Assessment/Plan: A fib--current meds effective..has outsi de providers at this time and has seen both recently Pre-Diabetes -counseled on low carb diet and regular exercise COPD: quite stable today. looks better than last year -stiolto respimate -abulterol HTN/HLD/CHF -meds are effective chronic pain -oxycodone 10 mg, via workman's comp, nonVA med FOLLOW UP:1 year Imaging/consults today--none FOLLOW UP:1 year Suicide Screen: C-SSRS Screening [place]-Suicide Severity Rating Scale (C-SSRS Screener) 1. Over the past month, have you wished you wer e or wished you could go to sleep and not wake up? No 2. Over the past month, have you had any actual thoughts of killing yourself? No 3. Over the past month, have you been thinking about how you might do this? Response not required due to responses to other questions. 4. Over the past month, have you had these thou ghts and had some intention of acting on them? Response not required due to responses to other questions. 5. Over the past month, have you started to wor k out or worked out the details of how to kill yourself? Response not required due to responses to other questions. 6. If yes, at any time in the past month did yo u intend to carry out this plan? Response not required due to responses to other questions. 7. In your lifetime, have you ever done anythin g, started to do anything, or prepared to do anything to end you r life (for example, collected pills, obtained a gun, gave away valu smita, went to the roof but didn't jump)? No 8. If YES, was this within the past 3 months? Response not required due to responses to other questions. /santiago/ EDYTA GONSALVES APRN Signed: 11/09/2021 08:42 11/09/2021 ADDENDUM STATUS: COMPLETED please mail labs to Dr Lakhani and Dr Khan /dori GONSALVES APRN Signed: 11/09/2021 08:43 Receipt Acknowledged By: 11/10/2021 08:44 /santiago/ MARILYNN POLANCO 11/10/2021 ADDENDUM STATUS: COMPLETED Faxed lab results to Dr. Lakhani and Dr. Khan. /santiago/ MARILYNN POLANCO Signed: 11/10/2021 08:45 Nov 06, 2021 10:38 AM PRIMARY CARE ANNUAL EVALUATION NOTE: DANTE [place] [facility] LOCAL TITLE: Preventive Health Annual Review STANDARD TITLE: PRIMARY CARE ANNUAL EVALUATION N OTE DATE OF NOTE: NOV 06, 2021@10:38 ENTRY DATE: NOV 06, 2021@10:41:24 AUTHOR: DANTE OLIVEIRAIGNER: URGENCY: STATUS: COMPLETED Advance Directive Screen: Patient has an Advance Directive on file at [facility]. The patient received education about advance directives as well as written notification of his/her rights. Patient has an up to date Advance Directive doc ument on file at this [facility]. No updates are needed at this time. The patient received education about advance di rectives as well as written notification of his/her rights. Tobacco Use Screening: The patient is a former tobacco user. The patient quit fifteen or more years ago. Diabetic Eye Exam: Order Eye Clinic consult. DM/PVD/ESRD Foot Exam: Patient had a complete visual examination of th e feet at this encounter. Result of Exam: Abnormal bi-laterally. Hammer t oes bi-laterally. Dry skin. No other abnormalities. SLight swelling i n LE bi-laterally. Patient's feet were examined for presence of do rsalis pedis and posterior tibial pulses. Results of Exam: Slightly Diminished bi-lateral ly. Unable to palpate. Doppler needed bi-laterally for doraslis pedal and posterior tibial. Patient had a monofilament examination of sensa tion in feet at this encounter. Results of Exam: Slightly Diminished bi-lateral ly The patient's foot risk was calculated, and the patient was educated on proper footwear and foot care. Please calculate the patient's Foot Risk Score (FRS) - 1 Required: (RATE the foot with the HIGHEST risk!) 2 = MODERATE RISK Patient declined [place] Podiatry consult. Falls & Incontinence Screen: Falls Screen: 4. No falls within the past year. Incontinence Screen No incontinence. Homelessness/Food Insecurity Screen: In the past 2 months, have you been living in s table housing that you own, rent, or stay in as part of a household? Y es - Living in stable housing. Are you worried or concerned that in the next 2 months you may NOT have stable housing that you own, rent, or stay in a s part of a household? No - Not worried about housing near future The [place] reports the following: Within the past 12 months, you worried whether your food would run out before you got money to buy more. Never true Within the past 12 months, the food you bought just didn't last and you didn't have money to get more. Never true Alcohol Use Screen (AUDIT-C): Alcohol Screen: SCREEN FOR ALCOHOL (AUDIT-C) An alcohol screening test (AUDIT-C) was negativ e (score=0). 1. How often did you have a drink containing al cohol in the past year? Never 2. How many drinks containing alcohol did you h ave on a typical day when you were drinking in the past year? Response not required due to responses to other questions. 3. How often did you have six or more drinks on one occasion in the past year? Response not required due to responses to other questions. Depression Screening: Perform PHQ-2 A PHQ-2 screen was performed. The score was 0 w hich is a negative screen for depression. Over the past two weeks, how often have you bee n bothered by the following problems? 1. Little interest or pleasure in doing things Not at all 2. Feeling down, depressed, or hopeless Not at all /santiago/ DANTE OLIVEIRA LPN Signed: 11/06/2021 11:00
--- OUTSIDE RECORDS SUMMARY | 2022-06-19 19:52 | XMS_ITS | Encounter Summary ---
:1940 Author Organization [facility] Address [address] [place] [id number] Support Name Relationship Address Phone STEPHANIE KIM Unavailable [address] [place] [address] STEPHANIE KIM Unavailable [address] [place] [address] Insurance Providers: All historical and current Section [...] MEDICARE MEDICARE PART Apr 17, PART B [id number] [phone] [facility] OTH PATIENT (WNR) (M) B 2014 23A 1 ER,JON D MEDICARE MEDICARE PART February 15, PART A [id number] [phone] [facility] OTH PATIENT (WNR) (M) A 2005 23A 1 ER,JON D Selected Encounter This section includes the information on record at [place] for the Encounter. Date/Time Encounter Type Encounter Description Reason Provider Source Jan 22, 2022 02:33 Outpatient Encounter COMMUNITY CARE PM CONSULT IHE Encounter Template Text not used by [place] Social History: Smoking Status (Most current) and Tobacco Use (All prior to encounter date) This section includes the most current, and the historical, smoking and tobacco-related health factors from the [facility] facility where the Encounter took place.Current Smoking Status This section includes the most current smoking, or tobacco-related health factor, from the VA facility where the Encounter took place. Date/Time Current Smoking Status Comment Facility Dec 15, 2018 01:54 PM VA-TOBACCO FORMER USER [facility] Tobacco Use History This section includes a history of the smoking, or tobacco- related health factors, that were collected on or before the date of the Encounter. The data comes from the [place] facility where the Encounter took place. Date/Time Smoking Status/Tobacco Use Comment Magalis osorio Dec 15, 2018 01:54 PM VA-TOBACCO QUIT 5 TO < 15 YRS [facility] Jun 02, 2016 12:51 PM QUIT TOBACCO USE > 7 YEARS AGO [facility] Advance Directives: All historical and current Section Date Range: From patient's date of to the date document was created. This section includes ALL of a patient's completed or amended [place] Advance and Rescinded Directives. The entries below indicate that a directive exists for the patient, but an actual copy is not included with this document. The data comes from all [place] facilities. Date Advance Directives Provider Source Jul 29, 2011 ADVANCE DIRECTIVE MILY MARIA J [facility] Encounter Notes: All associated encounter notes This section contains the clinical notes associated to the Encounter. Date/Time Encounter Note(s) Provider Source Jan 22, 2022 02:33 PM NONVA NOTE: ADRI VERONICA [facility] LOCAL TITLE: COMMUNITY CARE COORDINATION PLAN [facility] STANDARD TITLE: NONVA NOTE DATE OF NOTE: JAN 22, 2022@14:33 ENTRY DATE: JAN 22, 2022@14:34:03 AUTHOR: ADRI VERONICA EXP COSIGNER: URGENCY: STATUS: COMPLETED Alerting PCP that CC PCP consult will be expirin g 03/07/2022: [facility] Informing [facility] PCP and if giovani mmendation is to continue with CC PCP, please enter new CC consult. Thank you and please reach out t o this RN prn questions/concerns/assistance. /santiago/ Adri Veronica DNP, JOSE ARMANDO, RN-[facility] Clinical Coating Machine Feeder Signed: 01/22/2022 14:35 Receipt Acknowledged By: * AWAITING SIGNATURE * EDYTA GONSALVES * AWAITING SIGNATURE * IRINA CAR V
--- OUTSIDE RECORDS SUMMARY | 2022-06-19 19:52 | XMS_ITS | Encounter Summary ---
:1940 Author Organization [facility] Address [address] [place] [id number] Support Name Relationship Address Phone STEPHANIE KIM Unavailable [address] [place] [address] ANTONIETA KIMGY Unavailable [address] [place] [address] Insurance Providers: All historical and current Section [...] MEDICARE MEDICARE PART Apr 17, PART B [id number] FAIRCATIE OTH PATIENT (WNR) (M) B 2014A 1 ER,JON D MEDICARE MEDICARE PART February 15, PART A [id number] [id number] STEVIE OTH PATIENT (WNR) (M) A 2005 23A 1 ER,JON D Selected Encounter This section includes the information on record at [place] for the Encounter. Date/Time Encounter Type Encounter Description Reason Provider Source Oct 13, 2021 12:04 Outpatient Encounter TELEPHONE TRIAGE PM IHE Encounter Template Text not used by [place] Plan of Treatment: Future Appointments (+ 6 months) and Future Tests (+/- 45 days) The Plan of Treatment section includes future care activities for the patient from all [facility] treatment[facility]ilities. This section includes future appointments and future orders which are active, pending orscheduled.Future Appointments This section includes appointments that were scheduled to occur 6 months from the date of the Encounter, up to a maximum of 20 appointments. The data comes from all [place] treatment facilities. Appointment Date/Time Appointment Type Appointment Facili ty Name Nov 05, 2021 11:00 AM [facility] Nov 06, 2021 10:30 AM AMBULATORY - MEDICINE [facility] Jan 02, 2022 10:00 AM AMBULATORY - MEDICINE [facility] Jan 20, 2022 08:45 AM AMBULATORY - NONE [facility] Lab Results: +/- 30 days of the encounter This section includes the Chemistry and Hematology Lab Results on record with VA for the patient. Radiology Reports and Pathology Reports are provided separately, in subsequent sections.Lab Results This section contains the Chemistry/Hematology Results that were resulted 30 days before or 30 daysafter the date of the Encounter. Date/Time Source Result Type Result - Unit Interpretation Reference Range Comment Nov 05, 2021 10:54 AM [facility] FERRITIN Specime n Type: SERUM Comment: Tests performed on [employer] (405) [id number] Ordering Provid er: EDYTA GONSALVES Report Released Date/Time: Nov 05, 2021 07:31 AM Reporting Lab: [facility] [address] [facility] [address] Performing Lab: [facility] [address] [place] [place] [address] FERRITIN 155.0 20-300 Nov 05, 2021 10:54 AM [facility] IRON+TIBC(P) Specime n Type: PLASMA Comment: Tests performed on [employer] (405) SN:[id number] Ordering Provid er: EDYTA GONSALVES Report Released Date/Time: Nov 05, 2021 07:31 AM Reporting Lab: [facility] [address] [place] [facility] [place] [address] Performing Lab: [facility] [address] [place] [place] [address] IRON 122 40-160 TIBC 293 204-475 IRON SATURATION(P) 42 >15 UIBC(P) 171 126-382 Nov 05, 2021 10:54 AM [facility] PHOSPHORUS Specime n Type: PLASMA Comment: Tests performed on [employer] (405) SN:[id number] Ordering Provid er: EDYTA GONSALVES Report Released Date/Time: Nov 05, 2021 07:31 AM Reporting Lab: [facility] [address] [place] [place] [place] [address] Performing Lab: [facility] [address] [facility] [address] PHOSPHORUS 3.7 2.5-5.0 Nov 05, 2021 10:54 AM [facility] URIC ACID Specime n Type: PLASMA Comment: Tests performed on [employer] (405) SN:[id number] Ordering Provid er: EDYTA GONSALVES Report Released Date/Time: Nov 05, 2021 07:31 AM Reporting Lab: [facility] [address] [facility] [address] Performing Lab: [facility] [address] [facility] [address] URIC ACID 8.5 3.3-8.7 Nov 05, 2021 10:54 AM [facility] ALBUMIN Specime n Type: PLASMA Comment: Tests performed on [employer] (405) SN:[id number] Ordering Provid er: EDYTA GONSALVES Report Released Date/Time: Nov 05, 2021 07:31 AM Reporting Lab: [facility] [address] [facility] [address] Performing Lab[facility] [address] [facility] [address] ALBUMIN 3.9 3.2-5.0 Nov 05, 2021 10:54 AM [facility] VIT D 25-OH(WRJ) Specim en Type: SERUM Comment: Tests performed on [employer] (405) SN:[id number] Ordering Provid er: EDYTA GONSALVES Report Released Date/Time: Nov 05, 2021 07:31 AM Reporting Lab: [facility] [address] [facility] [address] Performing Lab: [facility] [address] [facility] [address] VIT D 25-OH(WRJ) 39.3 20-50 Nov 05, 2021 10:54 [facility] P4 GLU,BUN,CREAT,LYTES,CA Specimen Type: PLASMA AM Comment: Tests performed on [employer] (405) SN:[id number] Ordering Provid er: EDYTA GONSALVES Report Released Date/Time: Nov 05, 2021 07:31 AM Reporting Lab: [facility] [address] [facility] [address] Performing Lab: [facility] [address] [facility] [address] UREA NITROGEN 22 7-25 SODIUM 144 135-145 POTASSIUM 4.1 3.5-5.0 CHLORIDE 99 L 100-110 CARBON DIOXIDE 31 H 20-30 ANION GAP 14 4-16 GLUCOSE 129 H 65-100 CREATININE 1.57 H 0.5-1.5 CALCIUM 9.3 8.5-10.5 eGFR 43 L >60 Nov 05, 2021 10:54 AM [facility] CBC PROFILE Specime n Type: BLOOD No comment enter ed. Ordering Provid er: EDYTA GONSALVES Report Released Date/Time: Nov 05, 2021 07:31 AM Reporting Lab: [facility] [address] [facility] [address] Performing Lab: [facility] [address] [facility] [address] WBC 9.7 4.5-11.0 RBC 4.18 L 4.23-5.66 [...] GRANULOCYTES 6.7 2.2-7.6 ABSOLUTE NRBC 0.00 0-0 Nov 05, 2021 10:54 AM [facility] PTH-INTACT(WRJ) Specime n Type: SERUM Comment: Tests performed on [employer] (145) SN:[id number] Ordering Provid er: JAKYJOELEDYTA Report Released Date/Time: Nov 05, 2021 07:31 AM Reporting Lab: [facility] [address] [facility] [address] Performing Lab: [facility] [address] [facility] [address] PTH-INTACT(WRJ) 167.3 H 8.7-77.1 Social History: Smoking Status (Most current) and Tobacco Use (All prior to encounter date) This section includes the most current, and the historical, smoking and tobacco-related health factors from the [place] facility where the Encounter took place.Current Smoking Status This section includes the most current smoking, or tobacco-related health factor, from the [place] facility where the Encounter took place. Date/Time Current Smoking Status Comment Facility Dec 15, 2018 01:54 PM VA-TOBACCO FORMER USER [facility] Tobacco Use History This section includes a history of the smoking, or tobacco- related health factors, that were collected on or before the date of the Encounter. The data comes from the [place] facility where the Encounter took place. Date/Time Smoking Status/Tobacco Use Comment [facility] Dec 15, 2018 01:54 PM VA-TOBACCO QUIT 5 TO < 15 YRS [facility] Jun 02, 2016 12:51 PM QUIT TOBACCO USE > 7 YEARS AGO [facility] Advance Directives: All historical and current Section Date Range: From patient's date of to the date document was created. This section includes ALL of a patient's completed or amended [place] Advance and Rescinded Directives. The entries below indicate that a directive exists for the patient, but an actual copy is not included with this document. The data comes from all [place] facilities. Date Advance Directives Provider Source Jul 29, 2011 ADVANCE DIRECTIVE MILY MARIA CHILTON J CT [facility] Encounter Notes: All associated encounter notes This section contains the clinical notes associated to the Encounter. Date/Time Encounter Note(s) Provider Source Oct 13, 2021 12:04 PM TELEPHONE ENCOUNTER NOTE: MAY PEREZ [facility] LOCAL TITLE: VISN 1 CCC ACTION REQUIRED [facility] STANDARD TITLE: TELEPHONE ENCOUNTER NOTE DATE OF NOTE: OCT 13, 2021@12:04:46 ENTRY DATE: OCT 13, 2021@12:05:48 AUTHOR: MAY PEREZ EXP COSIGNER: URGENCY: STATUS: COMPLETED Type of call: SCHEDULING. Caller Response: ADM CALL RESOLVED The patient, LINDA KIM ([id number]) called the call center. Comments: [place] called and stated that he receiv ed a notice in the mail asking that he call and schedule an appointment. Please call e back. Evaluation/Management Code: HC PRO PHONE CALL 5- 10 MIN ([id number]). Starting at: 10/13/2021 @ 12:04:46 PM Ending at: 10/13/2021 @ 12:05:22 PM Length: 0 minutes. Author: MAY PEREZ Caller Area: [facility] The following identifiers were used to verify th is patient: SSN. Chief Complaint: Not applicable to call. Class Code: Other specified counseling. Contact Patient's Email Address: /es/ MAY PEREZ VISAlyssa [address] [facility] AMSA Signed: 10/13/2021 12:05 Receipt Acknowledged By: * AWAITING SIGNATURE * CASTRO DRIVER * AWAITING SIGNATURE * MARILYNN POLANCO
--- OUTSIDE RECORDS SUMMARY | 2022-06-19 19:52 | XMS_ITS | Encounter Summary ---
:1940 Author Organization [facility] Address [address] [place] [address] Support Name Relationship Address Phone STEPHANIE KIM Unavailable [address] [place] [address] STEPHANIE KIM Unavailable [address] [place] [address] Insurance Providers: All historical and current Section [...] MEDICARE MEDICARE PART Apr 17, PART B [id number] FAIRBR OTH PATIENT (WNR) (M) B 2014 23A 1 ER,JON D MEDICARE MEDICARE PART February 15, PART A [id number] [id number] FAIRBR OTH PATIENT (WNR) (M) A 2005 23A 1 ER,JON D Selected Encounter This section includes the information on record at [place] for the Encounter. Date/Time Encounter Type Encounter Description Reason Provider Source Jan 20, 2022 11:21 Outpatient Encounter COMMUNITY CARE AM CONSULT IHE Encounter Template Text not used by [place] Social History: Smoking Status (Most current) and [...] 15, 2018 01:54 PM VA-TOBACCO FORMER USER [facility] Tobacco Use History This section includes a history of the smoking, or tobacco- related health factors, that were collected on or before the date of the Encounter. The data comes from the [place] facility where the Encounter took place. Date/Time Smoking Status/Tobacco Use Comment Magalis osorio Dec 15, 2018 01:54 PM VA-TOBACCO QUIT 5 TO < 15 YRS [facility] Jun 02, 2016 12:51 PM QUIT TOBACCO USE > [address] [facility] Advance Directives: All historical and current Section Date Range: From patient's date of to the date document was created. This section includes ALL of a patient's completed or amended [place] Advance and Rescinded Directives. The entries below indicate that a directive exists for the patient, but an actual copy is not included with this document. The data comes from all [place] facilities. Date Advance Directives Provider Source Jul 29, 2011 ADVANCE DIRECTIVE MILY MARIA J CT [facility] Encounter Notes: All associated encounter notes This section contains the clinical notes associated to the Encounter. Date/Time Encounter Note(s) Provider Source Jan 20, 2022 11:21 AM NONVA CONSULT: SABINA LEIGH [facility] LOCAL TITLE: COMMUNITY CARE CONSULT RESULT NOTE KAROL TORRES [facility] STANDARD TITLE: NONVA CONSULT DATE OF NOTE: JAN 20, 2022@11:21 ENTRY DATE: JAN 27, 2022@11:21:56 AUTHOR: SABINA LEIGH COSIGNER: URGENCY: STATUS: COMPLETED COMMUNITY CARE CONSULT RESULT NOTE Has ADDE NDA VistA Imaging - Scanned Document COMMUNITY CARE-OPTOMETRY DISEASE 01/20/2022 ADULT EYE HEALTH AND VISION EXAMINATION DAT BROWN O.D. /santiago/ Sabina Leigh MRT Signed: 01/27/2022 11:23 02/12/2022 ADDENDUM STATUS: COMPLETED alerting RN /es/ CASTRO DRIVER AMSA Signed: 02/12/2022 13:21 Receipt Acknowledged By: * AWAITING SIGNATURE * IRINA CAR V
--- OUTSIDE RECORDS SUMMARY | 2022-06-19 19:52 | XMS_ITS | Encounter Summary ---
:1940 Author Organization [facility] Address [address] [place] [address] Support Name Relationship Address Phone STEPHANIE KIM Unavailable [address] [place] [address] STEPHANIE KIM Unavailable [address] [place] [address] Insurance Providers: All historical and current Section [...] MEDICARE MEDICARE PART Apr 17, PART B [id number] [id number] FAIRBR OTH PATIENT (WNR) (M) B 2014 23A 1 ER,JON D MEDICARE MEDICARE PART February 15, PART A [id number] [phone] FAIRBR OTH PATIENT (WNR) (M) A 2005 23A 1 ER,JON D Selected Encounter This section includes the information on record at [place] for the Encounter. Date/Time Encounter Type Encounter Reason Provider Source Description Jan 02, 2022 OFFICE O/P EST PRIMARY ICD-10-CM Z23 GUNJAN CAR 10:00 AM MINIMAL PROB CARE/MEDICINE Encounter for N V immunization with Provider Comments: Encounter for Immunization IHE Encounter Template Text not used by VA Assessments - Encounter Diagnoses This section includes the primary and secondary diagnoses documented for the Encounter. Date/Time Primary/Secondary Diagnosis Name Provider Source Diagnosis Jan 02, 2022 PRIMARY Encounter for IRINA CAR [facility] 10:03 AM immunization [facility] CLINIC Plan of Treatment: Future Appointments (+ 6 months) and Future Tests (+/- 45 days) The Plan of Treatment section includes future care activities for the patient from all [place] treatmentfacilities. This section includes future appointments and future orders which are active, pending orscheduled.Future Appointments This section includes appointments that were scheduled to occur 6 months from the date of the Encounter, up to a maximum of 20 appointments. The data comes from all [place] treatment facilities. Appointment Date/Time Appointment Type Appointment Facili ty Name Jan 20, 2022 08:45 AM AMBULATORY - NONE [facility] Immunizations: All administered on the encounter date This section contains immunizations associated to the Encounter. Immunization Series Date Issued Reaction Comments ZOSTER RECOMBINANT 2 Jan 02, 2022 Social History: Smoking Status (Most current) and Tobacco Use (All prior to encounter date) This section includes the most current, and the historical, smoking and tobacco-related health factors from the [place] facility where the Encounter took place.Current Smoking Status This section includes the most current smoking, or tobacco-related health factor, from the [place] facility where the Encounter took place. Date/Time Current Smoking Status Comment Facility Nov 06, 2021 10:30 AM PR-TOBACCO FORMER USER [facility] Tobacco Use History This section includes a history of the smoking, or tobacco- related health factors, that were collected on or before the date of the Encounter. The data comes from the [place] facility where the Encounter took place. Date/Time Smoking Status/Tobacco Use Comment Magalis doss Nov 06, 2021 10:30 AM VA-TOBACCO QUIT [address] [facility] Nov 07, 2020 02:00 PM VA-TOBACCO FORMER USER [facility] Nov 07, 2020 02:00 PM PR-TOBACCO QUIT [address] [facility] Oct 05, 2017 08:31 AM QUIT TOBACCO USE > [address] [facility] Advance Directives: All historical and current Section Date Range: From patient's date of to the date document was created. This section includes ALL of a patient's completed or amended [place] Advance and Rescinded Directives. The entries below indicate that a directive exists for the patient, but an actual copy is not included with this document. The data comes from all [facility]. Date Advance Directives Provider Source Jul 29, 2011 ADVANCE DIRECTIVE MILY MARIA J [facility] Encounter Notes: All associated encounter notes This section contains the clinical notes associated to the Encounter. Date/Time Encounter Note(s) Provider Source Jan 02, 2022 10:02 AM PRIMARY CARE NOTE: IRINA CAR [facility] LOCAL TITLE: Food Service Note STANDARD TITLE: PRIMARY CARE NOTE DATE OF NOTE: JAN 02, 2022@10:02 ENTRY DATE: JAN 02, 2022@10:02:19 AUTHOR: IRINA CAR V EXP COSIGNER: URGENCY: STATUS: COMPLETED Food Service Note Has ADDENDA Zoster Vaccine (Shingrix): The patient received recombinant zoster vaccine (RZV) 0.5 ml IM in Left deltoid. Hat Block Maker: [employer] Lot#s and Expiration Date: [id number] exp 03/16/23; d [id number] exp 03/16/23 Administered by protocol/policy Complications: None The VIS for the recombinant zoster vaccine (RZV ) dated Nov was given to the patient. /santiago/ IRINA ACR REGISTERED NURSE Signed: 01/02/2022 10:03 01/02/2022 ADDENDUM STATUS: COMPLETED is requesting copy of shingrix immunizat ions be faxed to Dr Khan office. /santiago/ IRINA CAR REGISTERED NURSE Signed: 01/02/2022 10:04 Receipt Acknowledged By: * AWAITING SIGNATURE * MARILYNN POLANCO * AWAITING SIGNATURE * CASTRO DRIVER
--- OUTSIDE RECORDS SUMMARY | 2022-06-19 19:53 | XMS_ITS | Encounter Summary ---
:1940 Author Organization [facility] Address [address] [place] [address] Support Name Relationship Address Phone STEPHANIE KIM Unavailable [address] [place] [address] STEPHANIE KIM Unavailable [address] [place] [address] Insurance Providers: All historical and current Section [...] MEDICARE MEDICARE PART Apr 17, PART B [id number] [id number] FAIRBR OTH PATIENT (WNR) (M) B 2014 23A 1 ER,JON D MEDICARE MEDICARE PART February 15, PART A [id number] [phone] FAIRBR OTH PATIENT (WNR) (M) A 2005 23A 1 ER,JON D Selected Encounter This section includes the information on record at [place] for the Encounter. Date/Time Encounter Type Encounter Description Reason Provider Source February 17, 2022 01:50 Outpatient Encounter PRIMARY CARE/MEDICINE PM IHE Encounter Template Text not used by [place] Social History: Smoking Status (Most current) and [...] 01:54 PM VA-TOBACCO FORMER USER [facility] Tobacco Use History This section includes a history of the smoking, or tobacco- related health factors, that were collected on or before the date of the Encounter. The data comes from the [place] facility where the Encounter took place. Date/Time Smoking Status/Tobacco Use Comment Magalis osorio Dec 15, 2018 01:54 PM VA-TOBACCO QUIT 5 TO < 15 YRS [facility] Jun 02, 2016 12:51 PM QUIT TOBACCO USE > 7 YEARS AGO [facility] Advance Directives: All historical and current Section Date Range: From patient's date of to the date document was created. This section includes ALL of a patient's completed or amended [place] Advance and Rescinded Directives. The entries below indicate that a directive exists for the patient, but an actual copy is not included with this document. The data comes from all [place] facilities. Date Advance Directives Provider Source Jul 29, 2011 ADVANCE DIRECTIVE MILY MARIA J CT [facility] Encounter Notes: All associated encounter notes This section contains the clinical notes associated to the Encounter. Date/Time Encounter Note(s) Provider Source February 17, 2022 01:50 PM PRIMARY CARE TELEPHONE ENCOUNTER NOTE: IRINA [facility] LOCAL TITLE: Telephone Note-Primary Care STANDARD TITLE: PRIMARY CARE TELEPHONE ENCOUNTER NOTE DATE OF NOTE: FEBRUARY 17, 2022@13:50 ENTRY DATE: FEBRUARY 17, 2022@13:50:19 AUTHOR: IRINA CAR V EXP COSIGNER: URGENCY: STATUS: COMPLETED Telephone Note-Primary Care Has ADDENDA please fax request to [facility] for results of most recent lab/blood work. Specifically need Hemoglobin A1C result. Work Phone: NONE Cell phone: [phone] /santiago/ IRINA CAR REGISTERED NURSE Signed: 02/17/2022 13:51 Receipt Acknowledged By: * AWAITING SIGNATURE * MARILYNN POLANCO 02/19/2022 08:44 /santiago/ CASTRO WALTERS 02/17/2022 ADDENDUM STATUS: COMPLETED Faxed request to [facility] /dori POLANCO Signed: 02/17/2022 14:11 02/19/2022 ADDENDUM STATUS: COMPLETED notes received, placed for review /santiago/ CASTRO WALTERS Signed: 02/19/2022 08:44
--- OUTSIDE RECORDS SUMMARY | 2022-06-19 19:53 | XMS_ITS | Encounter Summary ---
:1940 Author Organization [facility] Address [address] [place] [id number] Support Name Relationship Address Phone STEPHANIE KIM Unavailable [address] [place] [address] STEPHANIE KIM Unavailable [address] [place] [address] Insurance Providers: All historical and current Section [...] MEDICARE MEDICARE PART Apr 17, PART B [id number] [facility] OTH PATIENT (WNR) (M) B 2014 23A 1 ER,JON D MEDICARE MEDICARE PART February 15, PART A [id number] FA[facility] OTH PATIENT (WNR) (M) A 2005 23A 1 ER,JON D Selected Encounter This section includes the information on record at [place] for the Encounter. Date/Time Encounter Type Encounter Description Reason Provider Source Feb 02, 2022 01:42 Outpatient Encounter PRIMARY CARE/MEDICINE PM IHE Encounter Template Text not used by [place] Social History: Smoking Status (Most current) and [...] PM VA-TOBACCO FORMER USER [facility] Tobacco Use History This section includes a history of the smoking, or tobacco- related health factors, that were collected on or before the date of the Encounter. The data comes from the [place] facility where the Encounter took place. Date/Time Smoking Status/Tobacco Use Comment Magalis osorio Dec 15, 2018 01:54 PM VA-TOBACCO QUIT 5 TO < 15 YRS [facility] Jun 02, 2016 12:51 PM QUIT TOBACCO USE > 7 YEARS AGO [facility] Advance Directives: All historical and current Section Date Range: From patient's date of to the date document was created. This section includes ALL of a patient's completed or amended [place] Advance and Rescinded Directives. The entries below indicate that a directive exists for the patient, but an actual copy is not included with this document. The data comes from all [place] facilities. Date Advance Directives Provider Source Jul 29, 2011 ADVANCE DIRECTIVE MILY MARIA J CT [facility] Encounter Notes: All associated encounter notes This section contains the clinical notes associated to the Encounter. Date/Time Encounter Note(s) Provider Source Feb 02, 2022 01:42 PM PRIMARY CARE TELEPHONE ENCOUNTER NOTE: IRINA LOVETT V [facility] LOCAL TITLE: Telephone Note-Primary Care STANDARD TITLE: PRIMARY CARE TELEPHONE ENCOUNTER NOTE DATE OF NOTE: FEB 02, 2022@13:42 ENTRY DATE: FEB 02, 2022@13:42:23 AUTHOR: IRINA CAR V EXP COSIGNER: URGENCY: STATUS: COMPLETED Telephone Note-Primary Care Has ADDENDA Please request records of recent eye exam from Amelia Kyle OD in [place] done on 01/27/2022 Work Phone: NONE Cell phone: [phone] /santiago/ IRINA CAR REGISTERED NURSE Signed: 02/02/2022 13:42 Receipt Acknowledged By: 02/12/2022 13:16 /dori POLANCO 02/02/2022 ADDENDUM STATUS: COMPLETED Faxed request to get notes /dori POLANCO Signed: 02/02/2022 13:46 02/12/2022 ADDENDUM STATUS: COMPLETED Received notes. /dori POLANCO Signed: 02/12/2022 13:16 02/16/2022 ADDENDUM STATUS: COMPLETED Diabetic Eye Exam: The patient has had a dilated funduscopic exam of the retina, or has been screened by digital retinal imaging within the past 24 months by an mattress filler or rolling down machine operator. Results: The presence/absence of DM retinopathy is unkno wn. Repeat DM Eye Exam annually. Date: January 20, 2022 Location: [facility] Hemoglobin A1C: [place] had HBA1C result from another [facility] site (results required). Date: March 10, 2021 Location: [facility] Results: 6.7 /es/ IRINA CAR REGISTERED NURSE Signed: 02/16/2022 13:59
--- OUTSIDE RECORDS SUMMARY | 2022-06-19 19:54 | XMS_ITS | Encounter Summary ---
:1940 Author Organization [facility] Address [address] [place] [address] Support Name Relationship Address Phone STEPHANIE KIM Unavailable [address] [place] [address] STEPHANIE KIM Unavailable [address] [place] [address] Insurance Providers: All historical and current Section [...] MEDICARE MEDICARE PART Apr 17, PART B [id number] FAIR[facility] OTH PATIENT (WNR) (M) B 2014 23A 1 ER,JON D MEDICARE MEDICARE PART February 15, PART A [id number] [id number] FAIRBR OTH PATIENT (WNR) (M) A 2005 23A 1 ER,JON D Selected Encounter This section includes the information on record at [place] for the Encounter. Date/Time Encounter Type Encounter Description Reason Provider Source Mar 19, 2022 10:55 Outpatient Encounter ADMIN PAT ACTIVTIES AM (MASNONCT) IHE Encounter Template Text not used by [facility] Social History: Smoking Status (Most current) and [...] PM VA-TOBACCO FORMER USER [facility] Tobacco Use History This section includes a history of the smoking, or tobacco- related health factors, that were collected on or before the date of the Encounter. The data comes from the [place] facility where the Encounter took place. Date/Time Smoking Status/Tobacco Use Comment Magalis osorio Dec 15, 2018 01:54 PM VA-TOBACCO QUIT 5 TO < 15 YRS [facility] Jun 02, 2016 12:51 PM QUIT TOBACCO USE > 7 YEARS AGO [facility] Advance Directives: All historical and current Section Date Range: From patient's date of to the date document was created. This section includes ALL of a patient's completed or amended [place] Advance and Rescinded Directives. The entries below indicate that a directive exists for the patient, but an actual copy is not included with this document. The data comes from all [place] facilities. Date Advance Directives Provider Source Jul 29, 2011 ADVANCE DIRECTIVE MILY MARIA [facility] Encounter Notes: All associated encounter notes This section contains the clinical notes associated to the Encounter. Date/Time Encounter Note(s) Provider Source Mar 19, 2022 10:55 AM ADMINISTRATIVE NOTE: CASRTO DRIVER Brie MCCALLUM T LOCAL TITLE: Has Admin Note [facility] STANDARD TITLE: ADMINISTRATIVE NOTE DATE OF NOTE: MAR 19, 2022@10:55 ENTRY DATE: MAR 19, 2022@10:55:08 AUTHOR: CASTRO DRIVER EXP COSIGNER: URGENCY: STATUS: COMPLETED Reason for call Clinic Name: [facility] 1st call -RTC 10/2022 - #[phone] - attempt to schedul e - will attempt call again /santiago/ CASTRO DRIVER AMSA Signed: 03/19/2022 10:56
--- OUTSIDE RECORDS SUMMARY | 2022-06-19 19:54 | XMS_ITS | Encounter Summary ---
:1940 Author Organization [facility] Address [address] [place] [address] Support Name Relationship Address Phone STEPHANIE KIM Unavailable [address] [place] [address] STEPHANIE KIM Unavailable [address] [place] [address] Insurance Providers: All historical and current Section [...] MEDICARE MEDICARE PART Apr 17, PART B [id number] [id number] FAIR[facility] OTH PATIENT (WNR) (M) B 2014 23A 1 ER,JON D MEDICARE MEDICARE PART February 15, PART A [id number] [id number] GABBR OTH PATIENT (WNR) (M) A 2005 23A 1 ER,JON D Selected Encounter This section includes the information on record at [place] for the Encounter. Date/Time Encounter Type Encounter Description Reason Provider Source February 19, 2022 11:02 Outpatient Encounter PRIMARY CARE/MEDICINE AM IHE Encounter Template Text not used by [place] Social History: Smoking Status (Most current) and [...] PM VA-TOBACCO FORMER USER [facility] Tobacco Use History This section includes a history of the smoking, or tobacco- related health factors, that were collected on or before the date of the Encounter. The data comes from the [place] facility where the Encounter took place. Date/Time Smoking Status/Tobacco Use Comment Magalis osorio Dec 15, 2018 01:54 PM VA-TOBACCO QUIT 5 TO < 15 YRS [facility] Jun 02, 2016 12:51 PM QUIT TOBACCO USE > 7 YEARS AGO [facility] Advance Directives: All historical and current Section Date Range: From patient's date of to the date document was created. This section includes ALL of a patient's completed or amended [place] Advance and Rescinded Directives. The entries below indicate that a directive exists for the patient, but an actual copy is not included with this document. The data comes from all [place] facilities. Date Advance Directives Provider Source Jul 29, 2011 ADVANCE DIRECTIVE MILY MARIA J [facility] Encounter Notes: All associated encounter notes This section contains the clinical notes associated to the Encounter. Date/Time Encounter Note(s) Provider Source February 19, 2022 11:03 AM NONVA NOTE: IRINA CAR V [facility] LOCAL TITLE: NonVA Laboratory STANDARD TITLE: NONVA NOTE DATE OF NOTE: FEBRUARY 19, 2022@11:03 ENTRY DATE: FEBRUARY 19, 2022@11:03:05 AUTHOR: IRINA CRA V EXP COSIGNER: URGENCY: STATUS: COMPLETED Hemoglobin A1C: [place] had HBA1C result from another health pending sale to [facility] site (results required). Date: December 18, 2021 Location: [facility] Results: 6.4 /santiago/ IRINA CAR REGISTERED NURSE Signed: 02/19/2022 11:03
[2022-06-19 20:25] LABS: HCT 40.7 % (40.0-50.0); HGB 13.2 g/dL (13.5-17.5); MCH 34.3 pg (27.0-33.0); MCHC 32.4 % (32.0-36.0); MPV 12.8 fL (8.0-11.0); Platelet Count 167 10^3/uL (130-400); RBC 3.85 10^6/uL (4.36-5.78); RDW 14.8 % (11.8-14.1); RDW-SD 58.3 fL; WBC 10.04 10^3/uL (4.4-10.8)
[2022-06-19 20:47] LABS: MCV 106 fL (80-95)
[2022-06-19 21:19] LABS: Albumin 3.6 g/dL (3.4-5.0); Anion Gap 5.3 mmol/L (3-11); BUN 41 mg/dL (7-18); CO2 37.7 mmol/L (21.0-32.0); CREATININE 1.9 mg/dL (0.70-1.30); Calcium 9.1 mg/dL (8.5-10.1); Chloride 103 mmol/L (98-107); Glucose 143 mg/dL (74-106); NT-proBNP 2279 pg/mL (<300); Potassium 4.8 mmol/L (3.5-5.1); Sodium 146 mmol/L (136-145)
== END 2022-06-19 19:49 | disposition home or self-care (01) ==
LOC: NCHCN 19:48
PROVIDERS: PCP Internal Medicine; Visit Provider Internal Medicine
DX: E11.9 Type 2 diabetes mellitus without complications (principal); I50.9 Heart failure, unspecified; N18.30 Chronic kidney disease, stage 3 unspecified
CPT/HCPCS: 80069; 85027; 83880

== ENCOUNTER 2023-07-21 16:50 | Outpatient (REF) | payer MEDICARE, SELFPAY ==
[2023-07-21 20:28] LABS: Abs Immature Grans 0.03 10^3/uL (0.0-0.06); Absolute Eosinophil Count 0.34 10^3/uL (0.0-0.7); Absolute Lymphocyte Count 2.45 10^3/uL (1.2-3.4); Absolute Monocyte Count 0.91 10^3/uL (0.1-0.8); Absolute Neutrophil Count 6.61 10^3/uL (1.2-6.7); Eosinophils % 3.3; HCT 40.1 % (40.0-50.0); HGB 12.9 g/dL (13.5-17.5); Immature Grans % 0.3; Lymphocytes % 23.5; MCH 32.8 pg (27.0-33.0); MCHC 32.2 % (32.0-36.0); MCV 102 fL (80-95); MPV 11.5 fL (8.0-11.0); Monocytes % 8.7; Neutrophils % 63.2; Platelet Count 185 10^3/uL (130-400); RBC 3.93 10^6/uL (4.36-5.78); RDW 14.6 % (11.8-14.1); RDW-SD 55.2 fL; WBC 10.44 10^3/uL (4.4-10.8)
[2023-07-21 20:37] LABS: ALT 22 U/L (16-63); AST 25 U/L (15-37); Albumin 3.4 g/dL (3.4-5.0); Alkaline Phosphatase 77 U/L (46-116); BUN 27 mg/dL (7-18); Bilirubin, Total 0.3 mg/dL (0.2-1.0); CREATININE 1.4 mg/dL (0.70-1.30); Calcium 9.3 mg/dL (8.5-10.1); Chloride 102 mmol/L (98-107); Estimated GFR 50.18 (mL/min/1.73m2); Glucose 112 mg/dL (74-106); Potassium 4.5 mmol/L (3.5-5.1); Sodium 141 mmol/L (136-145); Total Protein 7.5 g/dL (6.4-8.2)
== END 2023-07-21 16:51 | disposition home or self-care (01) ==
LOC: NCHCN 16:50
PROVIDERS: PCP Internal Medicine; Visit Provider Internal Medicine
DX: N18.30 Chronic kidney disease, stage 3 unspecified (principal); I50.9 Heart failure, unspecified; E11.9 Type 2 diabetes mellitus without complications; K31.84 Gastroparesis
CPT/HCPCS: 80053; 85025

== ENCOUNTER 2024-02-11 18:07 | Outpatient (REF) | payer MEDICARE, SELFPAY ==
[2024-02-11 19:10] LABS: HCT 44.7 % (40.0-50.0); HGB 14.1 g/dL (13.5-17.5); MCH 32.8 pg (27.0-33.0); MCHC 31.5 % (32.0-36.0); MCV 104 fL (80-95); MPV 11.8 fL (8.0-11.0); Platelet Count 180 10^3/uL (130-400); RDW 15.2 % (11.8-14.1); RDW-SD 58.7 fL; WBC 9.99 10^3/uL (4.4-10.8)
[2024-02-11 20:25] LABS: ALT 28 U/L (16-63); AST 33 U/L (15-37); Albumin 3.6 g/dL (3.4-5.0); Alkaline Phosphatase 79 U/L (46-116); Anion Gap 5.7 mmol/L (3-11); BUN 23 mg/dL (7-18); Bilirubin, Total 0.4 mg/dL (0.2-1.0); CO2 35.3 mmol/L (21.0-32.0); CREATININE 1.5 mg/dL (0.70-1.30); Calcium 9.2 mg/dL (8.5-10.1); Chloride 104 mmol/L (98-107); Estimated GFR 46.19 (mL/min/1.73m2); Glucose 132 mg/dL (74-106); NT-proBNP 1348 pg/mL (<300); Potassium 4.4 mmol/L (3.5-5.1); Sodium 145 mmol/L (136-145); Total Protein 7.5 g/dL (6.4-8.2)
[2024-02-11 20:40] LABS: Calculated LDL 111 mg/dL (<100); Cholesterol 182 mg/dL (<200); HDL Cholesterol 57 mg/dL (40-60); Triglyceride 72 mg/dL (<150)
== END 2024-02-11 18:08 | disposition home or self-care (01) ==
LOC: NCHCN 18:07
PROVIDERS: PCP Internal Medicine; Visit Provider Internal Medicine
DX: E11.9 Type 2 diabetes mellitus without complications (principal); I13.10 Hypertensive heart and chronic kidney disease without heart failure, with stage 1 through stage 4 chronic kidney disease, or unspecified chronic kidney disease
CPT/HCPCS: 80053; 80061; 85027; 83880

== ENCOUNTER 2024-08-17 12:56 | Outpatient (REF) | payer MEDICARE, SELFPAY ==
[2024-08-17 19:12] LABS: HCT 40.3 % (40.0-50.0); HGB 13.7 g/dL (13.5-17.5); MCH 33.9 pg (27.0-33.0); MCV 100 fL (80-95); MPV 12.2 fL (8.0-11.0); Platelet Count 162 10^3/uL (130-400); RBC 4.04 10^6/uL (4.36-5.78); RDW-SD 59.3 fL; WBC 7.33 10^3/uL (4.4-10.8)
[2024-08-17 19:31] LABS: Anion Gap 3.4 mmol/L (3-11); BUN 29 mg/dL (7-18); CO2 36.6 mmol/L (21.0-32.0); CREATININE 1.5 mg/dL (0.70-1.30); Calcium 9.8 mg/dL (8.5-10.1); Chloride 105 mmol/L (98-107); Estimated GFR 45.91 (mL/min/1.73m2); Glucose 111 mg/dL (74-106); Potassium 4.4 mmol/L (3.5-5.1); Sodium 145 mmol/L (136-145)
== END 2024-08-17 12:57 | disposition home or self-care (01) ==
LOC: NCHCN 12:56
PROVIDERS: PCP Internal Medicine; Visit Provider Internal Medicine
DX: I48.91 Unspecified atrial fibrillation (principal)
CPT/HCPCS: 80048; 85027